=== PATIENT | male | born 1945 | race Caucasian/White ===

== ENCOUNTER 2019-04-14 08:23 | Outpatient (CLI) | payer MEDICARE, SELFPAY ==
[2019-04-14 08:37] LABS: Basophils Absolute Auto 0.05 K/mm3 (0.00-0.10); Eosinophils Absolute Auto 0.38 K/mm3 (0.02-0.50); Eosinophils Percent Auto 7.6 % (1.0-6.0); Hematocrit 34.1 % (37.0-46.0); Hemoglobin 11.5 g/dL (12.4-15.3); Immature Granulocyte Absolute 0.01 K/mm3 (0.00-0.00); Immature Granulocyte Percent A 0.2 % (0.0-0.0); Lymphocytes Absolute Auto 0.63 K/mm3 (1.10-4.50); Lymphocytes Percent Auto 12.6 % (18.0-42.0); Mean Corpuscular HGB Conc 33.7 g/dL (32.0-36.0); Mean Corpuscular Hemoglobin 32.4 pg (27.0-31.0); Mean Corpuscular Volume 96.1 fL (78.0-102.0); Mean Platelet Volume 9.3 fl (8.7-11.0); Monocytes Absolute Auto 0.63 K/mm3 (0.10-0.90); Monocytes Percent Auto 12.6 % (2.0-11.0); Neutrophils Absolute Auto 3.3 K/mm3 (1.7-7.2); Platelet Count Result 104 K/mm3 (150-420); Red Blood Count 3.55 M/mm3 (4.70-6.10); Red Cell Distribution Width 14.6 % (11.6-14.4)
[2019-04-14 10:22] LABS: Alanine Aminotransferase 31 U/L (16-63); Albumin Level 3.9 g/dL (3.4-5.0); Alkaline Phosphatase 57 U/L (46-116); Anion Gap 14.2 mmol/L (7-16); Aspartate Amino Transferase 25 U/L (15-37); Bilirubin,Total 0.9 mg/dL (0.00-1.00); Blood Urea Nitrogen 21 mg/dL (7-18); Calcium 8.6 mg/dL (8.5-10.1); Carbon Dioxide 26 mmol/L (21-32); Chloride 106 mmol/L (98-108); Estimated Glomerular Filt Rate > 60; Glucose 104 mg/dL (70-99); Osmolality Calculated 297 mOsm/kg (285-295); Potassium 4.2 mmol/L (3.5-5.1); Sodium 142 mmol/L (136-145); Total Protein 6.8 g/dL (6.4-8.2)
== END 2019-04-14 08:24 | disposition home or self-care (01) ==
LOC: CHSLAB 08:24
PROVIDERS: PCP Internal Medicine Geriatric Medicine; Visit Provider Internal Medicine Geriatric Medicine
DX: M06.9 Rheumatoid arthritis, unspecified (principal)
CPT/HCPCS: 36415; 80053; 85025

== ENCOUNTER 2019-05-12 07:57 | Outpatient (CLI) | payer MEDICARE, SELFPAY ==
--- NOTE | ~2019-05-12 | US_ITS ---
EXAMINATION: US retroperitoneal comp DATE: 05/12/2019 09:45 INDICATION: Malignant neoplasm of the urinary bladder TECHNIQUE: Multiple grayscale and Doppler ultrasound images of the kidneys were obtained. COMPARISON: CT, 12/23/2018 FINDINGS: The right kidney measures 10.9 x 5.9 x 5.2 cm. The left kidney measures 11.1 x 5.8 x 5.8 cm . Cysts of the left kidney measure up to 2.2 cm. The kidneys demonstrate normal parenchymal echogenic ity. There is mild bilateral hydronephrosis which resolves after voiding. The bladder is normal. IMPRESSION: 1. Mild bilateral hydronephrosis which resolves post voiding. Reviewed, dictated and finalized at location A.
== END 2019-05-12 07:58 | disposition home or self-care (01) ==
PROVIDERS: PCP Internal Medicine Geriatric Medicine; Visit Provider Urology
DX: C67.2 Malignant neoplasm of lateral wall of bladder (principal)
CPT/HCPCS: 76770

== ENCOUNTER 2019-05-26 12:29 | Outpatient (CLI) | payer MEDICARE, SELFPAY ==
--- NOTE | ~2019-05-26 | XR_ITS ---
XR chest 2V DATE: 05/26/2019 12:48 INDICATION: Cough, fever TECHNIQUE: 2 views COMPARISON: None FINDINGS: Normal heart size. There is aortic calcification and tortuosity. No hilar or mediastinal en largement.Approximately 4 x 9 mm density overlies right mid lung at level of minor fissure; different ial diagnosis includes fissure node versus less likely small pulmonary mass. The lungs are otherwise clear. No pulmonary infiltrate or consolidation, pulmonary vascular congestion or pleural effusion or pneumothorax. There is diffuse idiopathic skeletal hyperostosis and scoliosis of the thoracic spine. IMPRESSION: Probable fissural node, minor fissure; consider CT thorax at this time for further evalua tion, or follow up chest radiograph in 6 months to document expected stability. Otherwise no active cardiopulmonary disease Aortic atherosclerosis Reviewed, dictated and finalized at location B. IMPRESSION: Probable fissural node, minor fissure; consider CT thorax at this t guicho for further evaluation, or follow up chest radiograph in 6 months to docume nt expected stability. Otherwise no active cardiopulmonary disease Aortic atherosclerosis
[2019-05-26 12:43] LABS: Basophils Absolute Auto 0.02 K/mm3 (0.00-0.10); Basophils Percent Auto 0.3 % (0.0-1.0); Eosinophils Absolute Auto 0.23 K/mm3 (0.02-0.50); Eosinophils Percent Auto 3.9 % (1.0-6.0); Hematocrit 35.6 % (37.0-46.0); Immature Granulocyte Absolute 0.03 K/mm3 (0.00-0.00); Immature Granulocyte Percent A 0.5 % (0.0-0.0); Lymphocytes Absolute Auto 0.48 K/mm3 (1.10-4.50); Lymphocytes Percent Auto 8.2 % (18.0-42.0); Mean Corpuscular HGB Conc 33.7 g/dL (32.0-36.0); Mean Corpuscular Hemoglobin 32.8 pg (27.0-31.0); Mean Corpuscular Volume 97.3 fL (78.0-102.0); Mean Platelet Volume 9.6 fl (8.7-11.0); Monocytes Absolute Auto 0.66 K/mm3 (0.10-0.90); Monocytes Percent Auto 11.3 % (2.0-11.0); Neutrophils Absolute Auto 4.4 K/mm3 (1.7-7.2); Neutrophils Percent Auto 75.8 % (50.0-70.0); Platelet Count Result 111 K/mm3 (150-420); Red Blood Count 3.66 M/mm3 (4.70-6.10); Red Cell Distribution Width 14.7 % (11.6-14.4); White Blood Count 5.9 K/mm3 (4.8-10.8)
== END 2019-05-26 12:30 | disposition home or self-care (01) ==
LOC: CHSLAB 12:32
PROVIDERS: PCP Internal Medicine Geriatric Medicine; Visit Provider Internal Medicine Geriatric Medicine
DX: R05 Cough (principal)
CPT/HCPCS: 36415; 71046; 85025

== ENCOUNTER 2019-06-16 07:24 | Outpatient (CLI) | payer MEDICARE, SELFPAY ==
--- NOTE | ~2019-06-16 | CT_ITS ---
EXAMINATION: CT abdomen pelvis wo/w con DATE: 06/16/2019 08:38 INDICATION: Malignant neoplasm of the urinary bladder TECHNIQUE: Computed tomography (CT) of the abdomen and pelvis was performed without intravenous contr ast. CT of the abdomen and pelvis was then performed with a total of 130 mL Omnipaque 350 intravenous contrast using a double-bolus technique for simultaneous opacification of the renal parenchyma and r enal collecting system. The dose-length product (DLP) was 1337.16 mGy-cm. Automated exposure control and iterative reconstruction technique were employed. COMPARISON: 01/15/2019 FINDINGS: There are subpleural groundglass and reticular opacities in the visualized lung bases with an appearance of nonspecific interstitial pneumonia (NSIP). The heart size is normal. There is a smal l sliding hiatal hernia. The liver, spleen, gallbladder, and adrenal glands are normal. Punctate calc ifications of the pancreas are consistent with chronic pancreatitis. Cysts of the kidneys measure up to 2.7 cm on the left. 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 No suspicious renal or urothelial lesion is identifie d. There is no hydronephrosis or hydroureter. There is a 4.3 x 4.2 cm fusiform aneurysm of the infrar enal abdominal aorta. No pathologically enlarged abdominal or pelvic lymph nodes are identified. Ther e is no free intraperitoneal gas or evidence of bowel obstruction. There is severe lumbar spondylosis at L5-S1. 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 IMPRESSION: 1. No suspicious renal or urothelial lesion identified. 2. Stable fusiform abdominal aortic aneurysm. Reviewed, dictated and finalized at location A.
--- NOTE | ~2019-06-16 | XR_ITS ---
EXAMINATION: XR abdomen/kub 1V INDICATION: Malignant neoplasm of the urinary bladder TECHNIQUE: Supine views of the abdomen were obtained on 2 radiographs. COMPARISON: 09/03/2011 FINDINGS: A moderate volume of colonic stool is present. Surgical changes are noted in the pelvis. Th ere is severe lumbar spondylosis at L5-S1. The bowel gas pattern is normal. IMPRESSION: 1. No acute abnormality. Reviewed, dictated and finalized at location A. IMPRESSION: 1. No acute abnormality.
[2019-06-16 07:52] LABS: Estimated Glomerular Filt Rate 60
== END 2019-06-16 07:25 | disposition home or self-care (01) ==
LOC: CHSIMG 07:28
PROVIDERS: PCP Internal Medicine Geriatric Medicine; Visit Provider Urology
DX: C67.2 Malignant neoplasm of lateral wall of bladder (principal)
CPT/HCPCS: 74018; 74178; Q9965

== ENCOUNTER 2019-08-19 11:08 | Outpatient (CLI) | payer MEDICARE, SELFPAY ==
[2019-08-19 11:29] LABS: Hematocrit 33.5 % (37.0-46.0); Hemoglobin 11.5 g/dL (12.4-15.3); Mean Corpuscular HGB Conc 34.3 g/dL (32.0-36.0); Mean Corpuscular Hemoglobin 33.3 pg (27.0-31.0); Mean Corpuscular Volume 97.1 fL (78.0-102.0); Mean Platelet Volume 9.2 fl (8.7-11.0); Platelet Count Result 120 K/mm3 (150-420); Red Blood Count 3.45 M/mm3 (4.70-6.10); Red Cell Distribution Width 14.6 % (11.6-14.4); White Blood Count 3.8 K/mm3 (4.8-10.8)
[2019-08-19 11:52] LABS: Alanine Aminotransferase 27 U/L (16-63); Albumin Level 3.6 g/dL (3.4-5.0); Alkaline Phosphatase 65 U/L (46-116); Anion Gap 11.7 mmol/L (7-16); Aspartate Amino Transferase 24 U/L (15-37); Bilirubin,Total 0.6 mg/dL (0.00-1.00); Blood Urea Nitrogen 29 mg/dL (7-18); Calcium 8.4 mg/dL (8.5-10.1); Carbon Dioxide 27 mmol/L (21-32); Chloride 106 mmol/L (98-108); Estimated Glomerular Filt Rate > 60; Glucose 90 mg/dL (70-99); Osmolality Calculated 295 mOsm/kg (285-295); Potassium 4.7 mmol/L (3.5-5.1); Sodium 140 mmol/L (136-145); Total Protein 6.5 g/dL (6.4-8.2)
[2019-08-19 12:26] LABS: Band Neutrophils Percent 2 % (0-6); Basophils Absolute Manual 0.03 K/mm3 (0-0.1); Basophils Percent Manual 1 % (0-1); Eosinophils Absolute Manual 0.22 K/mm3 (0.02-0.5); Eosinophils Percent Manual 6 % (1-6); Lymphocytes Absolute Manual 0.91 K/mm3 (1.1-4.5); Lymphocytes Percent Manual 24 % (18-44); Monocytes Percent Manual 8 % (3-9); Neutrophils Absolute Manual 2.31 K/mm3 (1.3-6.7); Neutrophils Percent Manual 59 % (46-73); Platelet Estimate Adequate (Adequate); Total Cells Counted 100
== END 2019-08-19 11:09 | disposition home or self-care (01) ==
DX: M05.79 Rheumatoid arthritis with rheumatoid factor of multiple sites without organ or systems involvement (principal); I10 Essential (primary) hypertension; E78.2 Mixed hyperlipidemia
CPT/HCPCS: 36415; 80053; 85025

== ENCOUNTER 2020-01-15 08:14 | Outpatient (CLI) | payer MEDICARE, SELFPAY ==
[2020-01-15 08:42] LABS: Basophils Absolute Auto 0.03 K/mm3 (0.00-0.10); Basophils Percent Auto 0.7 % (0.0-1.0); Eosinophils Absolute Auto 0.34 K/mm3 (0.02-0.50); Eosinophils Percent Auto 7.9 % (1.0-6.0); Hematocrit 36.3 % (37.0-46.0); Hemoglobin 11.7 g/dL (12.4-15.3); Immature Granulocyte Absolute 0.02 K/mm3 (0.00-0.00); Immature Granulocyte Percent A 0.5 % (0.0-0.0); Lymphocytes Absolute Auto 0.59 K/mm3 (1.10-4.50); Lymphocytes Percent Auto 13.7 % (18.0-42.0); Mean Corpuscular HGB Conc 32.2 g/dL (32.0-36.0); Mean Corpuscular Volume 99.2 fL (78.0-102.0); Monocytes Percent Auto 13.9 % (2.0-11.0); Neutrophils Absolute Auto 2.7 K/mm3 (1.7-7.2); Neutrophils Percent Auto 63.3 % (50.0-70.0); Platelet Count Result 123 K/mm3 (150-420); Red Blood Count 3.66 M/mm3 (4.70-6.10); Red Cell Distribution Width 15.1 % (11.6-14.4); White Blood Count 4.3 K/mm3 (4.8-10.8)
[2020-01-15 09:55] LABS: Alanine Aminotransferase 30 U/L (16-63); Albumin Level 4.1 g/dL (3.4-5.0); Alkaline Phosphatase 63 U/L (46-116); Anion Gap 11 mmol/L (8-16); Aspartate Amino Transferase 22 U/L (15-37); Bilirubin,Total 0.8 mg/dL (0.00-1.00); Blood Urea Nitrogen 27 mg/dL (7-18); Calcium 8.8 mg/dL (8.5-10.1); Carbon Dioxide 25 mmol/L (21-32); Chloride 107 mmol/L (98-108); Estimated Glomerular Filt Rate > 60; Glucose 116 mg/dL (70-99); LDL Cholesterol Direct 95 mg/dL (0-130); Osmolality Calculated 302 mOsm/kg (285-295); Potassium 4.4 mmol/L (3.5-5.1); Sodium 143 mmol/L (136-145); Vitamin B12 615 pg/mL (193-986)
== END 2020-01-15 08:15 | disposition home or self-care (01) ==
LOC: CHSLAB 08:16
PROVIDERS: PCP Internal Medicine Geriatric Medicine; Visit Provider Internal Medicine Geriatric Medicine
DX: I71.4 Abdominal aortic aneurysm, without rupture (principal); E78.2 Mixed hyperlipidemia; M05.79 Rheumatoid arthritis with rheumatoid factor of multiple sites without organ or systems involvement; R26.89 Other abnormalities of gait and mobility
CPT/HCPCS: 36415; 80053; 82607; 83721; 85025

== ENCOUNTER 2020-01-29 11:53 | Outpatient (CLI) | payer MEDICARE, SELFPAY ==
[2020-01-29 12:07] LABS: Appearance Urine Sl Cloudy (Clear); Bilirubin Urine Negative (Negative); Color Urine Yellow (Yellow); Glucose Urine UA Negative (Negative); Ketones Urine Negative (Negative); Leukocyte Esterase Ur 1+ LEU/UL (Negative); Nitrate Urine Negative (Negative); Protein Urine Trace (Negative); Urobilinogen Urine 0.2 mg/dL (0.2-1.0)
[2020-01-29 12:13] LABS: Add Urine Microscopic? YES; Bacteria Urine Trace /hpf; Blood Urine Trace-Intact (Negative)
== END 2020-01-29 11:54 | disposition home or self-care (01) ==
LOC: CHSLAB 11:55
PROVIDERS: PCP Internal Medicine Geriatric Medicine; Visit Provider Internal Medicine Geriatric Medicine
DX: R35.0 Frequency of micturition (principal)
CPT/HCPCS: 81001; 87077; 87086; 87088

== ENCOUNTER 2020-03-15 08:21 | Outpatient (CLI) | payer MEDICARE, SELFPAY ==
[2020-03-15 08:41] LABS: Basophils Absolute Auto 0.04 K/mm3 (0.00-0.10); Basophils Percent Auto 0.9 % (0.0-1.0); Eosinophils Absolute Auto 0.27 K/mm3 (0.02-0.50); Eosinophils Percent Auto 5.9 % (1.0-6.0); Hematocrit 34.9 % (37.0-46.0); Hemoglobin 11.8 g/dL (12.4-15.3); Immature Granulocyte Absolute 0.02 K/mm3 (0.00-0.00); Immature Granulocyte Percent A 0.4 % (0.0-0.0); Lymphocytes Absolute Auto 0.69 K/mm3 (1.10-4.50); Lymphocytes Percent Auto 15.1 % (18.0-42.0); Mean Corpuscular HGB Conc 33.8 g/dL (32.0-36.0); Mean Corpuscular Hemoglobin 33.6 pg (27.0-31.0); Mean Corpuscular Volume 99.4 fL (78.0-102.0); Monocytes Absolute Auto 0.54 K/mm3 (0.10-0.90); Monocytes Percent Auto 11.8 % (2.0-11.0); Neutrophils Percent Auto 65.9 % (50.0-70.0); Platelet Count Result 110 K/mm3 (150-420); Red Blood Count 3.51 M/mm3 (4.70-6.10); Red Cell Distribution Width 14.8 % (11.6-14.4); White Blood Count 4.6 K/mm3 (4.8-10.8)
[2020-03-15 08:42] LABS: Add Urine Microscopic? YES; Appearance Urine Sl Cloudy (Clear); Bilirubin Urine Negative (Negative); Blood Urine 3+ (Negative); Color Urine Yellow (Yellow); Glucose Urine UA Negative (Negative); Ketones Urine Negative (Negative); Leukocyte Esterase Ur Negative (Negative); Nitrate Urine Negative (Negative); Protein Urine 2+ (Negative); Specific Grav Ur 1.025 (1.010-1.020); Urobilinogen Urine 0.2 mg/dL (0.2-1.0)
[2020-03-15 08:54] LABS: Bacteria Urine 1+ /hpf; Mucus Urine Few /lpf; RBC Urine >75 /hpf (0-2); Squamous Epithelial Cell Urine Rare /hpf (Few)
[2020-03-15 09:46] LABS: Alanine Aminotransferase 27 U/L (16-63); Albumin Level 4.1 g/dL (3.4-5.0); Alkaline Phosphatase 65 U/L (46-116); Anion Gap 6 mmol/L (8-16); Aspartate Amino Transferase 24 U/L (15-37); Blood Urea Nitrogen 23 mg/dL (7-18); Calcium 8.9 mg/dL (8.5-10.1); Carbon Dioxide 28 mmol/L (21-32); Chloride 105 mmol/L (98-108); Estimated Glomerular Filt Rate > 60; Glucose 110 mg/dL (70-99); Osmolality Calculated 292 mOsm/kg (285-295); Potassium 4.1 mmol/L (3.5-5.1); Sodium 139 mmol/L (136-145); Total Protein 7.1 g/dL (6.4-8.2)
[2020-03-15 09:56] LABS: Erythrocyte Sedimentation Rate 52 mm/hr (0-20)
== END 2020-03-15 08:22 | disposition home or self-care (01) ==
PROVIDERS: PCP Internal Medicine Geriatric Medicine; Visit Provider Internal Medicine Geriatric Medicine
DX: M05.79 Rheumatoid arthritis with rheumatoid factor of multiple sites without organ or systems involvement (principal); R35.0 Frequency of micturition
CPT/HCPCS: 36415; 80053; 81001; 85025; 85652; 87086

== ENCOUNTER 2020-06-01 07:50 | Outpatient (CLI) | payer MEDICARE, SELFPAY ==
--- NOTE | ~2020-06-01 | US_ITS ---
EXAMINATION: US aorta [facility] scr[facility] DATE: 06/01/2020 08:26 INDICATION: Abdominal aortic aneurysm TECHNIQUE: Grayscale, color Doppler, and pulsed Doppler images of the aorta and common iliac arteries were obtained. COMPARISON: 12/31/2017 FINDINGS: The proximal aorta measures 1.9 cm in maximal AP diameter. The mid aorta measures 2.0 cm. Approximate ly 5 cm long distal aortic aneurysm measuring up to 4.3 cm. The right common iliac artery measures 11 mm. The left common iliac artery measures 11 mm. IMPRESSION: 1. No significant interval change in a 4.3 cm fusiform infrarenal abdominal aortic aneurysm. Reviewed, dictated and finalized at location D. IMPRESSION: 1. No significant interval change in a 4.3 cm fusiform infrarenal abdominal aor tic aneurysm.
== END 2020-06-01 07:51 | disposition home or self-care (01) ==
LOC: CHSIMG 07:53
PROVIDERS: PCP Internal Medicine Geriatric Medicine; Visit Provider Internal Medicine Geriatric Medicine
DX: I71.4 Abdominal aortic aneurysm, without rupture (principal)
CPT/HCPCS: 76706

== ENCOUNTER 2020-06-10 08:46 | Outpatient (CLI) | payer MEDICARE, SELFPAY ==
[2020-06-10 09:58] LABS: Erythrocyte Sedimentation Rate 52 mm/hr (0-20)
== END 2020-06-10 08:47 | disposition home or self-care (01) ==
LOC: CHSLAB 08:48
PROVIDERS: PCP Internal Medicine Geriatric Medicine; Visit Provider Internal Medicine Geriatric Medicine
DX: M05.79 Rheumatoid arthritis with rheumatoid factor of multiple sites without organ or systems involvement (principal)
CPT/HCPCS: 36415; 85652

== ENCOUNTER 2020-08-19 09:02 | Outpatient (CLI) | payer MEDICARE, SELFPAY ==
--- NOTE | 2020-09-16 08:36 | WPDHOLTEREM ---
Holter/Event Monitor Holter/Event Monitor Date of procedure: 08/19/20 Holter/Event Procedure: Event Monitor Indications: Dizziness Conclusion: 1. 21 days event monitor between 08/19/20-09/13/20. There are 152 available transmissions for analysis. 2. Predominant rhythm is sinus rhythm. HR range 50-145 bpm; average 76 bpm. 3. There are occasional premature supraventricular complexes with total burden of 1%. There are 37 episodes of SVT/atrial tachycardia, fastest at 145 bpm and longest lasting 22 seconds. 4. There are intermittent premature ventricular complexes with total burden of 5%. No ventricular tachycardia. 5. First degree AV block. No significant pauses greater than 2 seconds. 6. Patient reports 5 symptoms of lightheadedness, shortness of breath and symptoms other than listed which demonstrate sinus rhythm, HR range 68-92 bpm and 1 PVC and 2 atrial couplets.
== END 2020-08-19 09:03 | disposition home or self-care (01) ==
LOC: CHSCARD 09:06
PROVIDERS: PCP Internal Medicine Geriatric Medicine
DX: R42 Dizziness and giddiness (principal)
CPT/HCPCS: 99199

== ENCOUNTER 2021-03-08 08:00 | Outpatient (RCR) | payer MEDICARE, SELFPAY ==
--- NOTE | 2021-03-08 09:03 | PTOPEVAL ---
Thank you for referring Kadeem Sinha to [facility].? The patient is scheduled to be seen for therapy? ____x/week for ___ weeks. Please review, sign, date and return this plan of care ZEYNEP. I agree with and certify that the following plan of care is medically necessary. Referring Physician Date Admitting Provider: Attending Provider: Cari Lawrence, Referring Provider: *PT Outpatient Evaluation Start: 03/08/21 07:59 Freq: Status: Active Protocol: Document 03/08/21 08:00 ACR (Rec: 03/08/21 09:02 ACR [id number]) Therapy Assessment Status Assessment Status Assessment Status Evaluation Evaluation Information Problem Diagnosis R shoulder pain Onset 02/15/21 Subjective Information Patient states that he is has Query Text:As Reported By Patient/ an 85 pound dog that plays tug Family of war alot and thinks that is what caused the pain. He states that he has difficulty with putting dishes away and any other activity with reaching overhead. He states that he went to the doctor and was put on prednisone and felt better. He states that he is packing to move and so is doing a lot of movements that he is not use to. He states he is not doing any heavy lifting. He states that washing dishes and scrubbing dishes increases the pain. He states that his sleep is disrupted quite a bit. He states that his goal for therapy is to improve strength and decrease pain. Prior Level of Function Activity Level (Last 3 Months) Occupation retired Hand Dominance Right Activity of Daily Living Ability Independent Indoor/Home Mobility Independent Community Mobility Independent Stairs Ability Independent Functional Cognition (Planning, Shopping Independent , Taking Medications) Cooking Yes Cleaning Yes Laundry Yes Shopping Yes Driving Yes Pain Assessment Timing of Pain Assessment Timing of Pain Assessment Assessment Pain Scale Pain Scale Used Numeric (1 - 10) Self Report Pain Assessment Right
--- NOTE | 2021-03-25 09:07 | PTOPEVAL ---
Thank you for referring Kadeem Sinha to [facility].? The patient is scheduled to be seen for therapy? ____x/week for ___ weeks. Please review, sign, date and return this plan of care ZEYNEP. I agree with and certify that the following plan of care is medically necessary. Referring Physician Date Admitting Provider: Attending Provider: Cari Lawrence, Referring Provider: *PT Outpatient Evaluation Start: 03/08/21 07:59 Freq: Status: Active Protocol: Document 03/25/21 08:19 ACR (Rec: 03/25/21 09:05 ACR [id number]) Therapy Assessment Status Assessment Status Assessment Status Discharge Evaluation Information Problem Diagnosis R shoulder pain Onset 02/15/21 Subjective Information Patient states that his arm Query Text:As Reported By Patient/ does not hurt as bad as when Family he first started therapy. He still has some pain with certain movements. He states that he still has pain when reaching overhead when putting dishes away and when reaching out to the side. He is still not doing a lot of heavy lifting, but when he keeps loads below the waist then the pain does not increase. Patient states that he is sleeping a little better. He does believe therapy has helped him Pain Assessment Pain Scale Pain Scale Used Numeric (1 - 10) Self Report Pain Assessment Right Shoulder(s) Reported Pain Level 0 Greatest Pain Intensity 3 Pain Score Pain Score 0: Self Report Interventions Used Interventions Used By Clinicians Activity or ADL's,Exercise Upper Extremity Range of Motion Scapular/ Shoulder Range of Motion Right Shoulder Flexion - Active 153 Shoulder Abduction - Active 175 Left Shoulder Flexion - Active 156 Shoulder Abduction - Active 180 Upper Extremity Muscle Strength Testing Scapular/Shoulder Right Shoulder Flexion Strength 4+ Good + Shoulder Adduction Strength 5 Normal Shoulder Medial Rotation Strength 5 Normal Shoulder Lateral Rotation Strength 4+ Good + Left Shoulder Flexion Strength 5 Normal Shoulder Abduction Strength 5 Normal Shoulder Medial Rotation Strength 5 Normal Shoulder Lateral Rotation Strength 5 Normal Palpation Assessment Palpation Palpation Patient continues to have TTP at the L bicpital groove with
== END 2021-03-25 10:29 | disposition home or self-care (01) ==
LOC: CHSPT 08:00
PROVIDERS: Visit Provider Internal Medicine Geriatric Medicine
DX: M25.511 Pain in right shoulder (principal)
CPT/HCPCS: 97014; 97110; 97140; 97161; G0283

== ENCOUNTER 2021-06-09 13:41 | Emergency (ER) | payer MEDICARE, SELFPAY ==
--- NOTE | ~2021-06-09 | XR_ITS ---
EXAMINATION: XR forearm RT 2V DATE: 06/09/2021 14:00 INDICATION: Right forearm injury and pain. TECHNIQUE: 2 views of right forearm were obtained. COMPARISON: None. FINDINGS: Bone alignment is normal. No fracture. 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 No elbow joint effusion. IMPRESSION: 1. No fracture. Reviewed, dictated and finalized at location A. IMPRESSION: 1. No fracture.
--- NOTE | 2021-06-09 13:58 | ED.UPPEXIN ---
HPI - Extremity Injury (Upper) General Chief Complaint: Extremity Injury, Upper Stated Complaint: rt arm pain,fall Time Seen by Provider: 06/09/21 13:55 Source: patient Mode of arrival: ambulatory Limitations: no limitations History of Present Illness HPI narrative: Mr. Sinha is a 75-year-old male patient presenting to the clinic today with complaints of right forearm pain after a fall on Sunday. He denies hitting his head or any loss of consciousness. Does have an area of bruising and tenderness to his right forearm that he would like to have evaluated today in the clinic. States he does not feel like anything is broken however he would like to get an x-ray to be sure. Related Data Home Medications Medication Instructions Recorded Confirmed carbidopa-levodopa tablet 06/09/21 donepezil mg 06/09/21 06/09/21 folic acid 06/09/21 leflunomide mg 06/09/21 lisinopril-hydrochlorothiazide tablet 06/09/21 methotrexate sodium 06/09/21 omeprazole 06/09/21 simvastatin mg 06/09/21 trazodone 06/09/21 Allergies Allergy/AdvReac Type Severity Reaction Status Date / Time No Known Allergies Allergy Verified 06/09/21 13:57 Review of Systems Review of Systems: Pertinent positives per HPI. Patient denies any fever, chills, rash, headache, visual changes, dizziness, cough, runny nose, sore throat, shortness of breath, chest pain, palpitations, nausea, vomiting, diarrhea, constipation, abdominal pain, or any urinary issues. PMFSH Comments At the time of my signature, I reviewed and agree with the nursing past medical, surgical, social, and family history. There is no relevant family history pertinent to the patient complaint. Exam Narrative: Pertinent positives per HPI. Patient denies any fever, chills, rash, headache, visual changes, dizziness, cough, runny nose, sore throat, shortness of breath, chest pain, palpitations, nausea, vomiting, diarrhea, constipation, abdominal pain, or any urinary issues. Course Course Emergency Course: Portions of this record may have been created with voice recognition software. Level of Care: Express Care Visit Vital Signs Vital signs: Vital signs reviewed MDM - Extremity Injury (Upper) MDM Narrative Medical decision making narrative: At the time of assessment patient is resting comfortably on the exam table. Has a tender area to the proximal lateral right forearm. X-ray was completed and it was negative for any fracture or malalignment. I suspect a soft tissue contusion. Discussed supportive measures and patient voiced understanding of discharge instructions. Imaging Data Attestation: I personally reviewed and interpreted this imaging study as follows: My impression: Negative for fracture or malalignment of the right forearm Radiologist's impression: [facility] [phone] XRay ReportSigned Patient: Kadeem Sinha ADOB: 1945MR#: [id number]/Sex: 75 / MAcct:[id number]: EXPTROY ADM Date: 06/09/21Attending Dr: Ordering Physician: Fantasma Pardo APRN Date of Service: 06/09/21 Procedure(s): XR forearm RT 2V Accession Number(s): [id number] cc: Fantasma Pardo APRN; Melinda, Cari COLE~ EXAMINATION: XR forearm RT 2V DATE: 06/09/2021 14:00 INDICATION: Right forearm injury and pain. TECHNIQUE: 2 views of right forearm were obtained. COMPARISON: None. FINDINGS: Bone alignment is normal. No fracture. 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 No elbow joint effusion. IMPRESSION: 1. No fracture. Reviewed, dictated and finalized at location A. Dictated By: Jamal Hall MD 06/09/21 140 Signed By: <Electronically signed by Jamal Hall MD in OV>06/09/21 140 Discharge Plan Discharge Clinical Impre
== END 2021-06-09 14:24 | disposition home or self-care (01) ==
PROVIDERS: Emergency Provider Nurse Practitioner Family; PCP Internal Medicine Geriatric Medicine
DX: S59.911A Unspecified injury of right forearm, initial encounter (principal); W19.XXXA Unspecified fall, initial encounter; G20 Parkinson's disease; I25.10 Atherosclerotic heart disease of native coronary artery without angina pectoris; E78.00 Pure hypercholesterolemia, unspecified; I10 Essential (primary) hypertension; K21.9 Gastro-esophageal reflux disease without esophagitis; N40.0 Benign prostatic hyperplasia without lower urinary tract symptoms
CPT/HCPCS: 73090; 99213; G0463

== ENCOUNTER 2021-11-18 12:21 | Outpatient (CLI) | payer MEDICARE, SELFPAY ==
--- NOTE | 2021-11-18 | ECHO_ITS ---
Patient Info Name: Kadeem Sinha Age: 76 years : 1945 Gender: Male Ht: 69 in Wt: 170 lbs BSA: 1.95 m2 HR: 66 bpm BP: 158 / 95 mmHg Technical Quality: Fair Exam Date: 11/18/2021 1:06 PM Exam Location: [facility] Patient Status: Outpatient Admit Date: 11/18/2021 Staff Ordering Physician: Melinda, Cari COLE Engine Buildup Mechanic: Margarette Amato RDCS Attending Provider: Kit, Cari COLE Exam Type: CA echo doppler color flow Study Info Indications - SOB RHEUMATOID ARTHRITIS Complete two-dimensional, color flow and Doppler transthoracic echocardiogram is performed. Summary 1. Complete two-dimensional, color flow and Doppler transthoracic echocardiogram is performed. 2. Left ventricular chamber dimension is normal. 3. Left ventricular systolic function is normal, estimated at 60-65%. 4. There is mildly increased left ventricular wall thickness. 5. The left ventricular diastolic function is grade I diastolic dysfunction. 6. E/e' 14 is mildly elevated. 7. Left atrial chamber dimension is mildly enlarged. 8. There is mild aortic valve sclerosis. 9. There is mild mitral valve regurgitation. 10. There is trace tricuspid valve regurgitation. 11. No pulmonary hypertension, estimated pulmonary arterial systolic pressure is 23 mmHg. Left Ventricle E/e' 14 is mildly elevated. Left ventricular chamber dimension is normal. Left ventricular systolic function is normal, estimated at 60-65%. There is mildly increased left ventricular wall thickness. The left ventricular diastolic function is grade I diastolic dysfunction. Right Ventricle Right ventricular chamber dimension is normal. Right ventricular systolic function is normal. Left Atria Left atrial chamber dimension is mildly enlarged. Right Atria Right atrial chamber dimension is normal. Aortic Valve The aortic valve is trileaflet. There is mild aortic valve sclerosis. There is no aortic valve stenosis. There is no aortic valve regurgitation. Pulmonic Valve There is no pulmonic regurgitation. Mitral Valve There is no mitral valve stenosis. There is mild mitral valve regurgitation. Tricuspid Valve There is trace tricuspid valve regurgitation. No pulmonary hypertension, estimated pulmonary arterial systolic pressure is 23 mmHg. Pericardium/Pleural There is no pericardial effusion. Inferior Vena Cava Normal inferior vena cava with >50% collapse upon inspiration consistent with normal right atrial pressure, 5 mmHg. Aorta The aortic root size at the sinus of Valsalva is normal. Left Ventricular Outflow Tract Name Value Normal LVOT 2D LVOT Diameter 2.1 cm LVOT Doppler LVOT Peak Gradient 4 mmHg LVOT Mean Gradient 2 mmHg LVOT VTI 21 cm LVOT VTI/AV VTI Ratio 1.0 LVOT Stroke Volume 72 ml LVOT CO 15.0 l/min LVOT CI 7.7 l/min/m2 Pulmonic Valve
--- NOTE | 2021-11-18 16:15 | WPDPFTINT ---
PFT Procedure Performed PFT Procedure Performed Spirometry with Pre/Post Bronchodilator Plethysmography (Lung Vol) Diffusing Cap (DLCO) Flow Vol Loop PFT Interpretation This is a pulmonary function test with pre and post-bronchodilator spirometry, plethysmography and diffusing capacity. The test was performed and results interpreted in accordance with the 2019 and 2005 ATS/ERS Task Force guidelines respectively using the Global Lung Function Initiative-2012 reference equations. Patient demonstrated good effort and cooperation. Reproducibility criteria were met. The quality of the pre bronchodilator spirometry maneuver was Grade A and post bronchodilator spirometry maneuver was Grade A. Findings: Spirometry: The contour the inspiratory and expiratory flow tracing are normal. The pre bronchodilator F VC is 3.69 L, 95% predicted. The pre bronchodilator FEV1 is 2.69 L, 93% predicted. The pre bronchodilator FEV1: FVC ratio 73%. The post bronchodilator FVC is 3.65 L, representing a 1% decrease. The post bronchodilator FEV1 is 2.67 L, representing 1% decrease. The post bronchodilator FEV1: FVC ratio 73%. Plethysmography: The total lung capacity is 5.90 L, 86% predicted. The functional residual capacity is 2.98 L, 81% predicted. The residual volume is 2.21 L, 88% predicted. Diffusing capacity: The diffusing capacity unadjusted for hemoglobin and carboxyhemoglobin is 14.8, 61% predicted. The diffusion capacity adjusted for alveolar volume is 2.88, 76% predicted. Impression: The spirometry is normal without evidence of an obstructive abnormality. There is no significant improvement after inhaling a single dose of albuterol. The diffusing capacity unadjusted for hemoglobin and carboxyhemoglobin is mildly decreased and normalizes when adjusted for alveolar volume. There are no prior studies for comparison
== END 2021-11-18 12:22 | disposition home or self-care (01) ==
LOC: ANHCARD 12:22
PROVIDERS: PCP Internal Medicine Geriatric Medicine; Visit Provider Internal Medicine Geriatric Medicine
DX: R06.02 Shortness of breath (principal); M05.79 Rheumatoid arthritis with rheumatoid factor of multiple sites without organ or systems involvement; I08.3 Combined rheumatic disorders of mitral, aortic and tricuspid valves
CPT/HCPCS: 93306; 94060; 94726; 94729

== ENCOUNTER 2023-02-16 08:37 | Outpatient (CLI) | payer MEDICARE, SELFPAY ==
--- NOTE | ~2023-02-16 | CT_ITS ---
CT of the Abdomen and Pelvis: Indication: Urinary bladder neoplasm Technique: 2.5 mm axial scans were obtained through the abdomen and pelvis prior to and following in travenous administration of 130 cc of Omnipaque 350. Dose reduction technique was used on this scan b y utilizing automated exposure control and iterative reconstruction technique. The dose-length produc t (DLP) was 1204.17 mGy-cm. COMPARISON: 06/16/2019 Findings: Scans through the lung bases demonstrate mild bibasilar peripheral chronic interstitial ch peng, similar to prior exam. The liver, spleen, pancreas, gallbladder, adrenals and kidneys are within normal limits. There are at herosclerotic calcifications of the aorta. There is a 5 cm infrarenal abdominal aortic aneurysm. No l ymphadenopathy. No bowel obstruction or bowel wall thickening. There is no evidence to suggest acute appendicitis. Images through the pelvis were performed. Mild wall thickening of the urinary bladder, prickly superi nora, stable from prior exam. Stable ileal conduit/into the superior right side of the urinary bladde r. No pelvic mass seen otherwise. Small fat-containing right inguinal hernia seen. No ascites. Impression: No evidence for active menisci metastatic disease. Stable minimal probable chronic wall thickening of the superior bladder with ileal conduit attached the superior right side of the urinary bladder. 5 cm infrarenal abdominal aortic aneurysm, increased in size from prior exam (previously 4.4 cm). Reviewed, dictated and finalized at location . 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 Stable minimal probable barrel cooper tunde wall thickening of the superior bladder with ileal conduit attached the sup erior right side of the urinary bladder. 5 cm infrarenal abdominal aortic aneurysm, increased in size from prior exam (p reviously 4.4 cm).
[2023-02-16 09:04] LABS: Estimated Glomerular Filt Rate 37
== END 2023-02-16 08:38 | disposition home or self-care (01) ==
PROVIDERS: PCP Internal Medicine Geriatric Medicine; Visit Provider Urology
DX: C67.2 Malignant neoplasm of lateral wall of bladder (principal); I71.40 Abdominal aortic aneurysm, without rupture, unspecified
CPT/HCPCS: 74178; Q9967

== ENCOUNTER 2024-10-29 11:42 | Outpatient (CLI) | payer MEDICARE, SELFPAY ==
--- OUTSIDE RECORDS SUMMARY | 2024-10-28 10:30 | XMS_ITS | Encounter Summary ---
Author Organization [facility] Address [address] [place] [address] Care Team Providers Care Instrument Lens Grinder Apprentice Name Role Phone Cari Lawrence MD Primary Care Provider [phone] Iván Jim MD Unavailable [phone] Celi Graves MD Unavailable Juan Mars MD Unavailable [phone] Mauricio Degroot MD Unavailable Curtis Ca MD Unavailable [phone] Chava Jones MD Unavailable [phone] Wili Hernandez MD Unavailable [phone] Jory Diego NP Unavailable [phone] Mitch Juan MD Unavailable [phone] Tiburcio Sarabia MD Unavailable Michelle Shi OD Unavailable [phone] Tomas Dunham MD Unavailable Reason for Referral * Procedure (Routine) - Pending Review Specialty Diagnoses / Procedures Referred By Contac t Referred To Contact Diagnoses COPD with asthma (HCC) Pulmonary fibrosis Procedures AMBULATORY OXIMETRY Elizabeth Hussein NP [address] [place] [address] Phone: tel: fax: [facility] Referral ID Status Reason Start Date Expiration Date V isits Requested Visits Authorized [id number] Pending Review 10/28/2024 11/27/2025 1 1 * MRI/CAT/PET Scan (Routine) - Authorized Specialty Diagnoses / Procedures Referred By Contac t Referred To Contact Radiology Diagnoses Encounter for screening for lung cancer Procedures CT Chest WO Contrast Elizabeth Hussein NP [address] [place] [address] Phone: tel: fax: [facility] [address] [place] [address] Referral ID Status Reason Start Date Expiration Date V isits Requested Visits Authorized [id number] Authorized 10/28/2024 11/27/2025 1 1 * Procedure (Routine) - Closed Specialty Diagnoses / Procedures Referred By Contac t Referred To Contact Diagnoses COPD with asthma (HCC) Pulmonary fibrosis Procedures Pulmonary Function Test -[facility]; Complete PFT with 6 Minute Walk Elizabeth Hussein NP [address] [place] [address] Phone: tel: fax: Referral ID Status Reason Start Date Expiration Date Visits Re quested Visits Authorized [id number] Closed 10/28/2024 11/27/2025 1 1 Reason for Visit * Reason Comments Shortness of Breath r Encounter Details Date Type Department Care Team (Late st Contact Info) Description 10/28/2024 10:30 AM CDT Office Visit [facility] [address] [facility] [address] [place] [address] Elizabeth Hussein NP [address] [place] [address] COPD with asthma (HCC) (Primary Dx); Pulmonary fibrosis; Encounter for screening for lung cancer Social History Tobacco Use Types Packs/Day Years Used Date Smoking Tobacco: Former Smokeless Tobacco: Never Alcohol Use Standard Drinks/Week Comments Yes 21 (1 standard drink = 0.6 oz pu re alcohol) [facility] Utilities Answer Date Recorded In the past 12 months has e [employer], gas, oil, or water company threatened to shut off services in your home? No 08/10/2023 Social Connection and Isolation Panel Answer Date Recorded In a typical week, how many times do you talk on the phone with family, friends, or neighbors? More than three times a week 08/10/2023 How often do you get togethe r with friends or relatives? Once a week 08/10/2023 How often do you attend chur ch or jainism services? Never 08/10/2023 Do you belong to any clubs o r organizations such as baptism groups, unions, fraternal or athletic groups, or school groups? No 08/10/2023 How often do you attend meet ings of the clubs or organizations you belong to? Never 08/10/2023 Are you , , di vorced, , never , or living with a partner? 08/10/2023 Overall Financial Resource Strain (CARDIA) Answe r Date Recorded How hard is it for you to pa y for the very basics like food, housing, medical care, and heating? Not hard at all 08/10/2023 PHQ-2 Answer Date Recorded PHQ-2 Total Score (If total score is 3 or more points, staff should administer the PHQ-9) 2 10/28/2024 Hunger Vital Sign Answer Date Recorded Within the past 12 months, y ou worried that your food would run out before you got the money to buy more. Never true 08/10/19 24 Within the past 12 months, t he food you bought just didn't last and you didn't have money to get more. Never true 08/10/2023 PRAPARE - Transportation Answer Date Re corded In the past 12 months, has l ack of transportation kept you from medical appointments or from getting medications? No 07/27 In the past 12 months, has l ack of transportation kept you from meetings, work, or from getting things needed for daily living? No 08/10/2023 Housing Stability Vital Sign Answer Black e Recorded In the last 12 months, was t here a time when you were not able to pay the mortgage or rent on time? No 12/19/2022 In the last 12 months, how many places have you lived? 1 12/19/2022 In the last 12 months, was t here a time when you did not have a steady place to sleep or slept in a half-way (including now)? No 12/19/2022 PHQ-9 Answer Date Recorded PHQ-9 Total Score 9 05/28/2023 Housing Stability Vital Sign Answer Black e Recorded In the last 12 months, was t here a time when you were not able to pay the mortgage or rent on time? No 08/10/2023 In the past 12 months, how m any times have you moved where you were living? 0 08/10/2023 At any time in the past 12 m [facility], were you homeless or living in a half-way (including now)? No 08/10/2023 Personal Safety Answer Date Recorded Have you ever been in or are you currently in a harmful physical or emotional relationship or is someone making you feel afraid or unsafe? Denies 12/18/2022 Education Answer Date Recorded What is the highest level of school you have completed or the highest degree you have received? 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 Gender Identity Male 03/09/2022 10:24 AM DENTAL CERAMIST HELPER Sexual Orientation Not on file Occupation Industry Job Start Date Job End Date retired Not on file Not on file Not on file documented as of this encounter Last Filed Vital Signs Vital Sign Reading Time Taken Comments Blood Pressure 126/62 10/28/2024 10:21 AM CDT Pulse 65 10/28/2024 10:21 AM CDT Temperature 36.6 C (97.8 F) 10/28/2024 10:21 AM CDT Respiratory Rate 24 10/28/2024 10:21 AM CDT Oxygen Saturation 97% 10/28/2024 10:21 AM CDT Inhaled Oxygen Concentration - - Weight 84.4 kg (186 lb) 10/28/2024 10:21 AM CDT Height 170.2 cm (5' 7) 10/28/2024 10:21 AM CDT Body Mass Index 29.13 10/28/2024 10:21 AM CDT documented in this encounter Patient Instructions * Patient Instructions* Elizabeth Hussein NP - 10/28/2024 10:30 AM CDT Needs PFTs and 6 minute walk test at [facility]. Needs low dose chest CT for lung cancer screening and pulmonary fibrosis. documented in this encounter Ordered Prescriptions Prescription Sig Dispense Quantity Refills Last Filled Start Date End Date albuterol HFA (PROVENTIL HFA,VENTOLIN HFA,PROAIR HFA) 90 mcg/actuation inhaler Inhale 2 puffs every 6 (six) hours as needed for wheezing 2 each 4 10/28/2024 documented in this encounter Plan of Treatment Pending Results Name Type Priority Associated Diagnoses Date /Time Pulmonary Function Test - PFT Routine COPD with asthma (HCC) Pulmonary fibrosis 10/29/2024 10:16 AM CDT Scheduled Orders Name Type Priority Associated Diagnoses Orde r Schedule CT Chest WO Contrast Imaging Schedule Routine, Read Routine (OP Routine) Encounter for screening for lung cancer Expected: 10/28/2024, Expires: 10/28/2025 documented as of this encounter Procedures Procedure Name Priority Date/Time Associated Diagnosis Comments AMBULATORY OXIMETRY Routine 10/28/2024 1 1:26 AM CDT COPD with asthma (HCC) Pulmonary fibrosis documented in this encounter Results * AMBULATORY OXIMETRY (10/28/2024 11:26 AM CDT) Narrative Renee Gamboa MA - 10/28/2024 11:26 AM CDT Resting on room air SPO2 97% with Heart rate of 65. Walking on room air SPO2 82% after about 200ft with Heart rate of 73. After 1 minute of sitting on room air SPO2 99% with Heart rate of 68. Walking on 2L of oxygen after 150ft SPO2 78% with Heart rate of 77. Walking on 4L of oxygen after 100ft SPO2 70% with Heart rate of 77. Resting rebounded to 100% after 1 minute on 4L of oxygen. [address] TRAFFIC CONTROL TECHNICIAN us Elizabeth Hussein PROPELLER MECHANIC IN CLINIC/BEDSIDE ORDERABLES Fin al Result documented in this encounter Visit Diagnoses Diagnosis COPD with asthma (HCC)- Primary Pulmonary fibrosis Postinflammatory pulmonary fibrosis Encounter for screening for lung cancer documented in this encounter Care Teams Instrument Lens Grinder Apprentice Relationship Specialty Start Date End Date Cari Lawrence MD PCP - General 05/26/16 Iván Jim MD [address] [place] [address] Referring Physician Orthopedic Surgery 09/06/22 Celi Graves MD [address] [place] [address] [place] [address] Consulting Physician Gastroenterology 12/25/22 Juan Mars MD [address] [place] [address] [place] [address] Consulting Physician Urology 01/30/23 Mauricio Degroot MD [address] [place] [address] [place] [address] Consulting Physician Nephrology 05/28/23 Curtis Ca MD [address] [place] [address] [place] [address] Consulting Physician Neurology 05/28/23 Chava Jones MD [address] [place] [address] [place] [address] Consulting Physician Plastic Surgery 05/28/23 Wili Hernandez MD [address] [facility] [address] [place] [address] Consulting Physician Cardiovascular Disease 05/27/22 Jory Diego NP [address] [facility] [address] [place] [address] Nurse Practitioner Family Medicine 07/30/23 Mitch Juan MD [address] [facility] [address] DUSTIN Gregorio [facility] [address] [place] [address] Surgeon Orthopedic Surgery 09/27/23 Tiburcio Sarabia MD [address] [facility] [address] DUSTIN Gregorio [facility] [address] [place] [address] Dermatology 09/27/23 Michelle Shi OD [address] [place] [address] [place] [address] Optometry 06/09/24 Tomas Dunham MD [address] [place] [address] Consulting Physician Vascular Surgery 09/08/24 documented as of this encounter
--- NOTE | ~2024-10-29 | XR_ITS ---
EXAM/ PROCEDURE: XR shoulder RT min 2V - 10/29/2024 11:52 CDT HISTORY: 79 years old Male with M12.811 - Other specific arthropathies, not elsewhere cla... COMPARISON: None available TECHNIQUE: Three view(s) FINDINGS/ IMPRESSION: There are no fractures or dislocations.Joint space narrowing, subchondral sclerosis, subchondral cyst formation and osteophyte formation, compatible with moderate osteoarthritis. Reviewed, dictated and finalized at location N.
--- OUTSIDE RECORDS SUMMARY | 2024-10-29 09:41 | XMS_ITS | Encounter Summary ---
Author Organization [facility] Address [address] [place] [address] Care Team Providers Care Roaster Supervisor Name Role Phone Cari Lawrence MD Primary Care Provider Iván Jim MD Unavailable [phone] Celi Graves MD Unavailable Juan Mars MD Unavailable [phone] Mauricio Degroot MD Unavailable Curtis Ca MD Unavailable [phone] Chava Jones MD Unavailable [phone] Wili Hernandez MD Unavailable [phone] Jory Diego NP Unavailable [phone] Mitch Juan MD Unavailable [phone] Tiburcio Sarabia MD Unavailable Michelle Shi OD Unavailable [phone] Tomas Dunham MD Unavailable Reason for Referral * Procedure (Routine) - Closed Specialty Diagnoses / Procedures Referred By Contac t Referred To Contact Diagnoses COPD with asthma (HCC) Pulmonary fibrosis Procedures Pulmonary Function Test -[facility]; Complete PFT with 6 Minute Walk Elizabeth Hussein NP [address] [place] [address] Phone: tel: fax: Referral ID Status Reason Start Date Expiration Date Visits Re quested Visits Authorized [id number] Closed 10/28/2024 11/27/2025 1 1 Reason for Visit * Procedure (Routine) - Closed Specialty Diagnoses / Procedures Referred By Contac t Referred To Contact Diagnoses COPD with asthma (HCC) Pulmonary fibrosis Procedures Pulmonary Function Test -[facility]; Complete PFT with 6 Minute Walk Elizabeth Hussein NP [address] [place] [address] Phone: tel: fax: Referral ID Status Reason Start Date Expiration Date Visits Re quested Visits Authorized [id number] Closed 10/28/2024 11/27/2025 1 1 Encounter Details Date Type Department Care Team (Latest Contact Info) Description 10/29/2024 9:41 AM CDT Hospital Encounter [facility] [address] [place] [address] COPD with asthma (HCC); Pulmonary fibrosis Social History Tobacco Use Types Packs/Day Years Used Date Smoking Tobacco: Former Smokeless Tobacco: Never Alcohol Use Standard Drinks/Week Comments Yes 21 (1 standard drink = 0.6 oz pu re alcohol) [facility] Utilities Answer Date Recorded In the past 12 months has [employer], gas, oil, or water [employer] threatened to shut off services in your [...] often do you attend chur ch or hinduism services? Never 08/10/2023 Do you belong to any clubs o r organizations such as alevism groups, unions, fraternal or athletic groups, or [...] money to buy more. Never true 08/10/19 Within the past 12 months, t he [...] place to sleep or slept in a chcf (including now)? No 12/19/2022 PHQ-9 Answer Date [...] any time in the past 12 m [facility], were you homeless or living in a chcf (including now)? No 08/10/2023 Personal Safety Answer [...] on file Legal Sex Male 3:43 PM TODDLER NANNY Gender Identity Male 03/09/2022 10:24 AM TODDLER NANNY Sexual Orientation Not on file Occupation Industry Job Start Date Job End Date retired Not on file Not on file Not on file documented as of this encounter Progress Notes * Nichelle Alfaro RRT - 10/29/2024 10:15 AM CDT 10/29/24 1000 Prior to Walk (measure after 5 minutes) Resting SPO2 97 % Resting HR 59 bpm BP Prior to Walk 122/59 Modified Hollie Scale 0- Nothing at All 6MWT O2 Flow Rate 0 6MWT Oxygen Device 0 Pt. Symptoms None Assistive Devices Walker During Walk Lowest SPO2 96 % Number of Rests During Walk 0 Duration of Rests During Walk 0 6 Minutes SPO2 97 % HR 66 bpm Distance Walked (feet) 980 feet Distance Walked (meters) 298 Modified Hollie Scale 3- Moderate Reason for Cessation end of test BP Post Walk 132/60 Pt. Symptoms Shortness of Breath After 5 Minutes of Rest HR 62 bpm BP 128/61 SPO2 98 % Pt. Symptoms None No oxygen required for testing. documented in this encounter Plan of Treatment Pending Results Name Type Priority Associated Diagnoses Date /Time Pulmonary Function Test - PFT Routine COPD with asthma (HCC) Pulmonary fibrosis 10/29/2024 10:16 AM CDT documented as of this encounter Procedures Procedure Name Priority Date/Time Associated Diagnosis Comments PULMONARY FUNCTION TEST (PFT) Routine 10/29/2024 10:16 AM CDT COPD with asthma (HCC) Pulmonary fibrosis documented in this encounter Visit Diagnoses Diagnosis COPD with asthma (HCC) Pulmonary fibrosis Postinflammatory pulmonary fibrosis documented in this encounter Care Teams Roaster Supervisor Relationship Specialty Start Date End Date Cari Lwarence MD PCP - General 05/26/16 Iván Jim MD [address] [place] [address] Referring Physician Orthopedic Surgery 09/06/22 Celi Graves MD [address] [place] [address] [place] [address] Consulting Physician Gastroenterology 12/25/22 Juan Mars MD [address] [place] [address] [place] [address] Consulting Physician Urology 01/30/23 Mauricio Degroot MD [address] [place] [address] [place] [address] Consulting Physician Nephrology 05/28/23 Curtis Ca MD [address] [place] [address] [place] [address] Consulting Physician Neurology 05/28/23 Chava Jones MD [address] [place] [address] [place] [address] Consulting Physician Plastic Surgery 05/28/23 Wili Hernandez MD [address] [place] [address] [place] [address] Consulting Physician Cardiovascular Disease 05/27/22 Jory Diego NP [address] [place] [address] [place] [address] Nurse Practitioner Family Medicine 07/30/23 Mitch Juan MD [address] [facility] [address] Gregorio [address] [place] [address] Surgeon Orthopedic Surgery 09/27/23 Tiburcio Sarabia MD [address] [place] [address] [address] [place] [address] Dermatology 09/27/23 Michelle Shi, AUREA [address] [place] [address] [place] [address] Optometry 06/09/24 Tomas Dunham MD [address] [place] [address] Consulting Physician Vascular Surgery 09/08/24 documented as of this encounter
--- OUTSIDE RECORDS SUMMARY | 2024-10-29 13:22 | XMS_ITS | Encounter Summary ---
Author Organization [facility] Address [address] [place] [address] Care Team Providers Care Supervisor Garment Manufacturing Name Role Phone Cari Lawrence MD Primary Care Provider [phone] Iván Jim MD Unavailable [phone] Celi Graves MD Unavailable Juan Mars MD Unavailable [phone] Mauricio Degroot MD Unavailable [phone] Curtis Ca MD Unavailable [phone] Chvaa Jones MD Unavailable [phone] Wili Hernandez MD Unavailable [phone] Jory Diego NP Unavailable [phone] Mitch Juan MD Unavailable [phone] Tiburcio Sarabia MD Unavailable Michelle Shi OD Unavailable [phone] Tomas Dunham MD Unavailable Encounter Details Date Type Department Care Team (Late st Contact Info) Description 10/16/2024 Results Follow-Up [facility] [address] [place] [address] [address] [id number] Gerson Villalpando MD [address] [facility] [address] [place] [address] PSG Social History Tobacco Use Types Packs/Day Years Used Date Smoking Tobacco: Former Smokeless Tobacco: Never Alcohol Use Standard Drinks/Week Comments Yes 21 (1 standard drink = 0.6 oz pu re alcohol) [facility] Utilities Answer Date Recorded In the past 12 months has e [employer], [employer], oil, or water [employer] threatened to shut off services in your [...] often do you attend chur ch or bahai services? Never 08/10/2023 Do you belong to any clubs o r organizations such as mormon groups, unions, fraternal or athletic groups, or [...] points, staff should administer the PHQ-9) 2 06/02/2024 Hunger Vital Sign Answer Date Recorded Within [...] place to sleep or slept in a assisted (including now)? No 12/19/2022 PHQ-9 Answer Date [...] any time in the past [address] [facility], were you homeless or living in a assisted (including now)? 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 Gender Identity Male 03/09/2022 10:24 AM GENERAL FORECASTER Sexual Orientation Not on file Occupation Industry Job Start Date Job End Date retired Not on file Not on file Not on file documented as of this encounter Miscellaneous Notes * Result Encounter Note - Paola Burger MA - 10/16/2024 1:21 PM CDT Pt informed order faxed to [employer] documented in this encounter Plan of Treatment Not on file documented as of this encounter Visit Diagnoses Not on filedocumented in this encounter Care Teams Supervisor Garment Manufacturing Relationship Specialty Start Date End Date Cari Lawrence MD PCP - General 05/26/16 Iván Jim MD [address] [place] [address] Referring Physician Orthopedic Surgery 09/06/22 Celi Graves MD [address] [place] [address] [place] [address] Consulting Physician Gastroenterology 12/25/22 Juan Mars MD [address] [place] [address] [place] [address] Consulting Physician Urology 01/30/23 Mauricio Degroot MD [address] [place] [address] [place] [address] Consulting Physician Nephrology 05/28/23 Curtis Ca MD [address] [place] [address] [address] [place] [address] Consulting Physician Neurology 05/28/23 Chava Jones MD [address] [place] [address] [place] [address] Consulting Physician Plastic Surgery 05/28/23 Wili Hernandez MD [address] [place] [address] [place] [address] Consulting Physician Cardiovascular Disease 05/27/22 Jory Diego, RY [address] [place] [address] [place] [address] Nurse Practitioner Family Medicine 07/30/23 Mitch Juan MD [address] [place] [address] [address] Gregorio [address] [place] [address] Surgeon Orthopedic Surgery 09/27/23 Tiburcio Sarabia MD [address] [place] [address] DR DUSTIN Gregorio [facility] [address] [place] [address] Dermatology 09/27/23 Michelle Shi OD [address] [place] [address] [place] [address] Optometry 06/09/24 Tomas Dunham MD [address] [place] [address] Consulting Physician Vascular Surgery 09/08/24 documented as of this encounter
--- OUTSIDE RECORDS SUMMARY | 2024-10-29 13:23 | XMS_ITS | Clinical Summary ---
Author Organization [facility] [address] [place] [address] Phone Care Team Providers Care Value Stream Manager Name Role Phone Cari Lawrence MD Primary Care Provider [phone] Iván Jim MD Unavailable Celi Graves MD Unavailable Juan Mars MD Unavailable [phone] Otoniel Jenkins MD Unavailable Curtis Ca MD Unavailable Chava Jones MD Unavailable [phone] Wili Hernandez MD Unavailable [phone] Jory Diego NP Unavailable Mitch Juan MD Unavailable Tiburcio Sarabia MD Unavailable Michelle Shi OD Unavailable [phone] Tomas Dunham MD Unavailable [phone] Allergies Active Allergy Reactions Criticality Noted Date Comments Naproxen Hives Medium Simvastatin Muscle pain Medium 05/28/2023 Switching to Crestor 20 Medications cyanocobalamin (Vitamin B-12) 1,000 mcg tabletIndication s:Prevention of Vitamin B12 Deficiency Take 1 tablet (1,000 mcg total) by mouth daily Active cholecalciferol, vitamin D3, (D3-2000 ORAL) Take 1,000 Units by mouth daily Active vit C,R-Tl-dwolo-lut ein-zeaxan 250-90-40-1 mg capsule Take 1 capsule by mouth 2 (two) times a day Recommended by field recruiter 024 Active melatonin 5 mg tablet Take 1 tablet (5 mg total) by mouth nightly Active mupirocin 2 % ointment kit Apply topically nightly Nightly as needed for nose bleeds Active traMADoL (ULTRAM) 50 mg tabletIndication s:Rheumatoid arthritis involving multiple sites with positive rheumatoid factor (HCC) Take 1 tablet (50 mg total) by mouth nightly as needed for pain Take with Tylenol 500 mg immediate release plus Tylenol ER 650 mg at each dose 30 tablet 025 Active carbidopa-levodo pa (SINEMET) 25-100 mg per tabletIndication s:Parkinson's disease (tremor, stiffness, slow motion, unstable posture) Take 1-2 tablets by mouth 3 (three) times a day Adjusted as directed: 2 tablets at 4:00 a.m., 1 tablet at 9:00 a.m., 2 tablets at 4:00 p.m. 450 tablet 5 025 Active carbidopa-levodo pa CR (SINEMET CR) 50-200 mg per CR tabletIndication s:Parkinson's disease (tremor, stiffness, slow motion, unstable posture) Take 1 tablet by mouth nightly 90 tablet 2 025 Active donepeziL (ARICEPT) 10 mg tabletIndication s:Lewy body dementia without behavioral disturbance (HCC) Take 1 tablet (10 mg total) by mouth nightly 90 tablet 025 2025 Active fluticasone propionate (FLONASE) 50 mcg/actuation nasal sprayIndications :Chronic rhinitis Administer 2 sprays into each nostril daily 30 mL [address] (PROTONIX) 40 mg EC tabletIndication s:Chronic GERD Take 1 tablet (40 mg total) by mouth daily 90 tablet 3 025 Active rosuvastatin (CRESTOR) 20 mg tabletIndication s:Multiple-type hyperlipidemia Take 1 tablet (20 mg total) by mouth daily 90 tablet 2 025 Active tiZANidine (ZANAFLEX) 2 mg tabletIndication s:Lumbar radiculopathy Take 0.5-1 tablets (1-2 mg total) by mouth nightly as needed for muscle spasms (Chronic low back pain) 025 Active senna-docusate (Senna with Docusate Sodium) 8.6-50 mgIndications:Ch ronic constipation Take 1-2 tablets by mouth daily with dinner With 1 cap full of MiraLax in 10 oz of fluid 60 tablet 11 025 Active traZODone (DESYREL) 50 mg tabletIndication s:Adjustment insomnia TAKE 1 TABLET BY MOUTH NIGHTLY NEEDED FOR SLEEP 90 tablet 1 025 Active propranoloL (INDERAL) 40 mg tablet TAKE 1 & 1/2 (ONE & ONE-HALF) TABLETS BY MOUTH TWICE DAILY 180 tablet 3 025 Active ipratropium (ATROVENT HFA) 17 mcg/actuation inhalerIndicatio ns:COPD with asthma ([facility]) Inhale 2 puffs 2 (two) times a day 3 each 025 Active tiotropium bromide (SPIRIVA RESPIMAT) 2.5 mcg/actuation inhalerIndicatio ns:Maintenance Therapy for Asthma Inhale 2 puffs daily 1 each 2 025 Active albuterol HFA (PROVENTIL HFA,VENTOLIN HFA,PROAIR HFA) 90 mcg/actuation inhaler Inhale 2 puffs every 6 (six) hours as needed for wheezing 2 each 4 025 2025 Active lisinopril-hydro CHLOROthiazide (ZESTORETIC) 10-12.5 mg per tabletIndication s:Benign hypertension with CKD (chronic kidney disease) stage III (HCC) Take 1 tablet by mouth daily with breakfast 90 tablet 1 022 2021 Discontinued ipratropium (ATROVENT) 21 mcg (0.03 %) nasal sprayIndications :Chronic rhinitis Administer 2 sprays into each nostril 2 (two) times a day 30 mL 5 025 2024 Discontinued( Alternate therapy) Active Problems Problem Noted Date Diagnosed Date Pulmonary fibrosis 10/28/2024 Chronic insomnia 07/11/2024 DARSHAN (obstructive sleep apnea) 07/11/2024 Overview (07/11/2024): Moderate DARSHAN by sleep study 07/11/2024 refer to sleep Medicine [facility]. This home sleep apnea test is positive for moderate obstructive sleep apnea with Respiratory Event Index (equivalent of Apnea Hypopnea Index) of 15.2 per hour. The recorded bed time starts at 9:46 pm. The total recording duration is 7:40 hours. The respiratory events (RE) included 5 apneas and 109 hypopneas. The total Respiratory event index (VENKATESH) was 15.2 per hour. Obstructive apnea index was 0.7, central apnea index was 0.0, mixed apnea index was 0.0. Lowest SpO2 was 89 % and time spent < 88% was 0:00 hours. Oxygen desaturation index was 15.2. Patient spent 6:09 hours in supine and 1:07 hours in non-supine position. Average heart rate was 59/min, minimum heart rate was 50/min, and maximum heart rate was 82/min. Chronic constipation 06/09/2024 Overview (06/09/2024): MiraLax 1 scoop not working Senna added 06/09/2024 Numbness and tingling of both feet 02/29/2024 Parkinson's disease ([facility]) 05/28/2023 Assessment & Plan (01/30/2024 9:11 AM CRYSTAL GRINDER): Chronic, Co managed by Neurology. Stable on Sinemet at this time. Continue same History of recurrent UTIs 05/25/2023 Overview (05/25/2023): Artificial bladder, elevated postvoid residual, must catheterize twice daily. Does not have symptoms with UTI because of the artificial bladder situation. Stage 3b chronic kidney disease 12/19/2022 SVT (supraventricular tachycardia) 12/18/2022 Overview (03/10/2024): During hospitalization 12/18/2022 required flecainide 50 mg b.i.d. to keep him from going back into SVT. Medication recommended by Cardiology medical radiation therapist Assessment & Plan (01/30/2024 9:12 AM CRYSTAL GRINDER): Chronic, stable on propranolol and flecainide at this time. Recent CMP unremarkable except for stable CKD, creatinine at baseline of 1.6. Echo from 11/2022 shows EF of 65-70% with mild pulmonary hypertension and no valvular issues Continue same and keep follows with cardiology as scheduled Assessment & Plan (01/14/2023 2:27 PM CRYSTAL GRINDER): Had 30 day event monitor placed in june 2022 for variable HR which showed predominantly sinus rhythm. See recent hospitalization details above. Serial EKGs showed all sinus/sinus tach- no atrial ectopy. ECHO was unremarkable. Continue propranolol and flecanide as rxd. Keep follow up with cardiology in 3 weeks. Urinary retention with incomplete bladder emptyi ng 10/23/2022 Anemia due to chronic kidney disease 10/10/2021 Dysfunction of rotator cuff of both shoulders Assessment & Plan (2022 3:11 PM CDT): Mild improvement with treating shingles. Still having aching pain worse in the morning. No acute exam findings. Likely arthritis. Continue Ibuprofen/Tylenol as needed. Heat/ice as tolerated. Gentle ROM activities encouraged. Assessment & Plan (05/23/2022 1:20 PM CDT): Chronic problem worse in the last 1-2 months. Assessment as noted above. No acute findings, likely tendon related. Will refer to Ortho for another joint injection and further treatment. Rxd 800 Ibuprofen as needed. Heat/ice as tolerated. Gentle ROM encouraged. Assessment & Plan (06/02/2021 12:30 PM CDT): Patient has history of chronic rt shoulder pain which improved with PT in the past. He presents today however, with acute pain post popping sound when lifting his dog. On exam he has positive can test of the rt and pain with overhead raises. No obvious weakness. Concern for possible rotator cuff tear. We will plan xray imaging given acute pain and popping to r/o any acute fracture or dislocation. He will continue with tylenol and tramadol for pain. Encouraged to avoid heavy lifting. He will be referred to PT. Will follow up as scheduled in 2 weeks or sooner if needed. Benign hypertension with CKD (chronic kidney disease) stage III 08/10/2018 Overview (12/29/2019): (-) cardiac workup 2014 PROCEDURE: The patient was exercised according to the Ken protocol for a total of 6 minutes and 33 seconds achieving a peak heart rate of 137 beats per minute which is 91 percent of maximum predicted. Total workload achieved was 7 METS. The test was stopped due to dyspnea. There was no chest pain. Baseline EKG was normal. At peak stress there is diagnostic EKG abnormality. Blood pressure and heart rate response to exertion was appropriate. There was no exercise induced arrhythmias. IMPRESSION: 1. NEGATIVE MAXIMAL EXERCISE STRESS TEST FOR CHEST OR DIAGNOSTIC EKG CHANGES. Dr. Hernandez Assessment & Plan (01/30/2024 9:08 AM CRYSTAL GRINDER): Chronic, at goal. BP stable in office today on current therapy. No acute findings on exam. Recent CMP unremarkable except for stable CKD, creatinine at baseline of 1.6. Echo from 11/2022 shows EF of 65-70% with mild pulmonary hypertension and no valvular issues. Continue propranolol and low salt diet. Keep follows with cardiology and nephrology as scheduled. Assessment & Plan (01/14/2023 2:16 PM CRYSTAL GRINDER): BP stable in office today on current therapy. See recent hospitalization for SVT as noted above. Serial EKGs were all sinus/sinus tach- no atrial ectopy. Repeat ECHO was unremarkable. No acute findings on exam. Continue current regimen and low salt diet. Keep follow with cardiology in 3 weeks. Assessment & Plan (09/06/2022 10:10 AM CDT): BP stable in office today on current therapy. No acute findings on exam. TELE monitor showed predominant NSR with frequent PVCs. Continue current regimen and low salt diet. Assessment & Plan (08/14/2022 8:21 PM CDT): BP elevated in office today at 160/80 VS 178/92 with home cuff. Asymptomatic, admits pressure at home are as high as 160/90s but pulse is 90-130. Currently wearing 30 day TELE monitor. No acute findings on exam, HR regular upon auscultation. Will increase propranolol back to 40mg BID. Low salt diet, avoid excessive caffeine use. Monitor BP daily and record, call if top number consistently above 140 or bottom number above 90. Assessment & Plan (2022 3:08 PM CDT): BP softer than normal but stable today in office. Orthostatic pressures negative. No acute findings on exam. Continue current regimen. Stay hydrated. Dizziness likely related to dehydration or eustachian tube dysfunction. Assessment & Plan (08/27/2019 5:22 PM CDT): Awaiting his labs which are not in the chart. Will send message to box builder to get these from [place]. Continue on current medications for BP which is controlled at this time. History of bladder cancer s/p radical cystectomy 08/10/2018 Overview (10/15/2018): Hx of bladder cancer status post cystectomy with ileal conduit by Dr. Louis tumor free since surgery Assessment & Plan (04/26/2020 9:47 AM CRYSTAL GRINDER): Pt reports that Dr. Aguirre did a cystoscopy and he reported that there were no abnormal findings to explain the abnormal cells in his urine. Assessment & Plan (03/24/2020 9:37 AM CRYSTAL GRINDER): Pt has appt to see his urologist Dr. Aguirre next week. Pt was told that there were abnormal cells in his recent urine testing. Chronic rhinitis 12/10/2016 Chronic GERD 12/10/2016 Assessment & Plan (08/27/2019 5:21 PM CDT): Pt states his symptoms are managed with his prilosec--he will continue on this. Multiple-type hyperlipidemia 07/12/2013 Overview (06/02/2016): Hyperlipidemia COPD with asthma 07/12/2013 Overview (06/02/2016): COPD (chronic obstructive pulmonary disease) Assessment & Plan (01/30/2024 9:05 AM CRYSTAL GRINDER): Chronic, stable on p.r.n. albuterol at this time. Lungs clear, satting 98% on room air. CT chest from 06/2023 confirms mild emphysema/fibrosis but no other acute changes. Continue same Abdominal aortic aneurysm (AAA) without rupture 01/01/2013 Overview (01/14/2023): CT abdomen 12/18/22 1. Redemonstrated postoperative changes from cystoprostatectomy with neobladder formation. Increased moderate bilateral hydronephrosis compared to 2019. 2. Increase in size of a 5.0 cm infrarenal abdominal aortic aneurysm compared to 2019. Follow-up CT angiogram may be performed for further evaluation. 3. Colonic diverticulosis without CT evidence of acute diverticulitis. 4. Small hiatal hernia. Indeterminate thickening of the stomach, likely due to under distension. 5. Progressive moderate-severe lower lumbar degenerative disc disease. 6. No gross acute cardiopulmonary abnormality. Mild emphysema with mild lower lung predominant scarring/fibrosis. KUB Dr. Danny Winters office aneurysm 5.[address] scan abdomen pelvis because of that x-ray confirmed aneurysm 4.5 cm not significantly enlarged over 2018 testing January 03, 2018 4.3 cm aneurysm on onogram AAA 2013 = 3.7 CM INFRARENAL ABDOMINAL AORTIC ANEURYSM, STABLE. (abdominal aortic aneurysm) a followed at bladder cancer sonogram or CT every other year with Dr. Louis Assessment & Plan (01/14/2023 1:57 PM CRYSTAL GRINDER): CT chest/abdomen/pelvis performed while in hospital for SVT showed AAA had grown to approx 5 cm. No acute findings on exam, no tenderness or bruit. Has follow with cardiology in 3 weeks. H&H had improved to 8.0/24 upon discharge. BP stable. Continue current regimen. Resolved Problems Problem Noted Date Diagnosed Date Resolved Date Lumbar radiculopathy 09/27/2023 025 Tiredness 07/31/2023 06/09/2024 Dermatochalasis of both upper eyelids 07/06/2023 01/28/2024 Parkinson's disease ([facility]) 01/30/2023 05/28/2023 Pancytopenia 12/21/2022 06/09/2024 Macrocytic anemia 12/21/2022 05/28/2023 Moderate protein-calorie malnutrition 12/19/2022 09/27/2023 Acute cystitis without hematuria 12/19/2022 05/25/2023 Acute pain of right shoulder 09/06/2022 03/13/2023 Assessment & Plan (09/06/2022 10:12 AM CDT): Worsening over approx 3 months. Tenderness and decreased ROM as noted above. PT has shown mild improvement. Has follow with Ortho next week. Will add Gabapentin 100mg nightly. Refilled 800mg Ibuprofen PRN. Continue current regimen. Heat/ice as tolerated. Adjustment insomnia 07/21/2022 05/25/19 Shingles (herpes zoster) polyneuropathy 07/21/2022 05/28/2023 Shingles 05/26/2022 07/21/2022 Assessment & Plan (2022 3:11 PM CDT): Cleared with 2 weeks worth of Valtrex. Assessment & Plan (05/26/2022 3:42 PM CDT): Rash for 3 days. Assessment as noted above. Rxd valtrex as directed. Continue motrin as needed. Call if symptoms not improved in 1 week. Cervicalgia 05/22/2022 07/21/2022 Assessment & Plan (05/23/2022 1:25 PM CDT): Chronic problem, worse over last month. seems to radiate from shoulder. No acute exam findings. Likely muscular, rxd 800 ibuprofen as needed. Heat/ice as tolerated. Gentle ROM encouraged. Will refer to Ortho for shoulder pain. Bilateral calf pain 04/07/2022 07/22/19 Assessment & Plan (04/07/2022 3:30 PM CRYSTAL GRINDER): Recurrent problem over the last few months, recently exacerbated this morning without relief with normal interventions (ambulation and heat, see HPI for details) Physical examination as documented - no signs/symptoms of serious illness noted Suspect spasm vs DVT vs arterial insufficiency (less likely due to 2+ dorsalis pedis pulses on examination) Recommended US to rule out clots, trial of tizanidine, and continued supportive measures at this time - patient agreeable to plan NEXT STEP: If no DVT and supportive measures are ineffective, could consider ABIs to assess for arterial insufficiency Orders for AMS STAFF to arrange US doppler of bilateral lower extremities - bilateral calf pain, rule out DVT Orders for Kadeem Sinha to arrange Start tizanidine as needed for muscle spasm Continue OTC acetaminophen as needed for pain Continue heating pad as needed for pain Consider daily stretching of the calf muscles to help prevent spasm Continue monitoring symptoms - report persistent or worsening symptoms to the office or go to ER Office to follow up after receiving results of US Follow up as scheduled with Dr. Lawrence or sooner if necessary Enuresis 03/14/2022 09/06/2022 Fecal smearing 03/14/2022 09/06/2022 Dysfunction of both eustachian tubes 03/14/2022 05/28/2023 Shortness of breath 12/16/2021 07/22/19 Overview (12/16/2021): Suspected related to methotrexate use which was immediately suspended. Symptoms much better 6 weeks off the medication Lung function testing done six-weeks off of the medication Testing not yet completed December 07, 2021 chest x-ray 2D Echocardiogram with Doppler Assessment & Plan (05/23/2022 1:26 PM CDT): Only with a deep breath, no acute findings on exam. EKG in office today showed sinus tach at 121 , no acute changes. likely muscular or referred from shoulder. Rxd 800 Ibuprofen as needed. Heat/ice as tolerated. Viral pharyngitis 01/18/2021 03/14/2022 Assessment & Plan (01/18/2021 2:17 PM CRYSTAL GRINDER): Patient presents with c/o of severe sore throat on and off since Sunday. He has some associated rhinorrhea, but no other complaints. He denies cough, reflux or fever. On exam no acute findings. Rapid covid 19 and strep testing were negative. He was encouraged to do supportive care he is to call with any worsening or persistent symptoms. Diaphoresis 09/24/2020 07/22/2021 SVT (supraventricular tachycardia) 08/25/2020 12/18/2022 Assessment & Plan (08/14/2022 8:26 PM CDT): Currently wearing 30 day TELE monitor to r/o paroxsymal arrhythmia. Pulse with BP cuff at home running 90-130s. BP mildly elevated. No acute findings on exam. Will increase Propranolol to 40mg BID. Avoid excessive caffeine use. Monitor BP and HR daily and record. Given parameters to call office if abnormal. Passage of bloody stools 06/07/2020 Abdominal pain 06/07/2020 07/22/2021 Parkinson's disease (tremor, stiffness, slow motion, unstable posture) 02/24/2020 06/09/2024 Overview (12/25/2022): BLACK scan 10/12/2022 for Parkinson's ordered by Dr. Ca IMPRESSION: Mild asymmetric decreased activity in the right putamen suggesting a presynaptic dopaminergic defect. Correlate clinically suggest follow-up exam. Electronically signed by: Jacquelin Pagan M.D. Treated successfully with Sinemet since 2019. Second opinion evaluation Dr. Ca 2022 agreed. BLACK scan ordered Assessment & Plan (08/07/2022 3:09 PM CDT): Chronic problem currently controlled on current dose of sinemet. L arm tremors seem to be worsening and patient has had rare episodes of dizziness. Course tremors to LUE as noted above, no other acute neurological findings. Has follow with Dr. Ca on 10/03/22. Continue current regimen. Assessment & Plan (04/26/2020 9:44 AM CRYSTAL GRINDER): He did not increase the dose to 1.5 tabs TID. I have asked him today if he would like to try increasing the dose in the case that he might see the tremor decrease some. He said he would like to try it at the 1.5 tab TID dose and see if he can tell a difference in the left hand tremor. He will f/u with Dr. MAURICE in June as planned. If he has any problems with the increase in the Sinemet--he will call me. Assessment & Plan (03/24/2020 1:07 PM CRYSTAL GRINDER): PT and his report that they have not seen a change in his left handed tremor since starting the sinemet. I have consulted with Dr. MAURICE and she states that we can go up on this today. Therefore, we will have him to start out on 1 full tablet TID for 3 days, and then if tolerated, he can increase up to 1.5 tabs TID. He will f/u with me in one month and then with Dr. MAURICE in June 2020. Sleep disorder 02/24/2020 03/14/2022 Assessment & Plan (03/24/2020 9:34 AM CRYSTAL GRINDER): Pt reports that his sleeping has improved and he is happy to keep taking the melatonin as he thinks it has helped. Continue melatonin 5mg at bedtime. Bleeding nose 02/24/2020 07/22/2021 Assessment & Plan (03/24/2020 9:39 AM CRYSTAL GRINDER): Pt states that the bactroban that Dr. MAURICE has given him has worked and he isn't having to use it at this point, and that he thinks his nose has healed up. 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 No acute symptoms or findings on exam today. No recent brain imaging. Continue Aricept and Sinemet as prescribed Assessment & Plan (04/26/2020 9:42 AM CRYSTAL GRINDER): Aricept is at 5mg nightly. He is not having problems with diarrhea. Continue at 5mg nightly. Assessment & Plan (03/24/2020 1:09 PM CRYSTAL GRINDER): Last visit patient was instructed to go up on the Aricept to 10mg daily. He and his agree that they have not seen any difference in his memory. He has developed diarrhea since being on the Aricept. We have recommended that he go back down to 5mg once daily. Loss of balance 12/29/2019 03/14/2022 Rib pain on right side 11/05/201912/28 Assessment & Plan (11/05/2019 10:23 AM CDT): Describes intermittent R flank pain for about 1 month now, with no associated symptoms. Tenderness over the ribs 8-10 on exam--will get an x-ray today to R/O fracture. Since he does not recall an injury, more likely to be musculoskeletal in nature, possibly a pulled muscle as pt does recall laying on the ground for some time to fix a car. We should also do a chest x-ray today to R/O lung lesion or pneumonia since he has had now for about 1 month, and also pt has hx of cancer. CBC today to R/O infectious process like kidney infection, and checking for UTI today with UA/CS. He also does not admit to constipation today but we will check a KUB incase constipation is the cause of this right sided back pain. Right hip pain 08/27/2019 06/09/2024 Assessment & Plan (03/13/2023 2:47 PM CRYSTAL GRINDER): Started last night, see HPI for details. Tenderness as noted above, no other acute findings. Will order XR to r/o structural changes or worsening arthritis. Take Tylenol IM and ES as instructed. No NSAIDs due to CKD. Heat/ice as tolerated. Gentle ROM activities encouraged. Reviewed fall precautions. Call if no improvement in 2 weeks. Assessment & Plan (08/27/2019 5:25 PM CDT): Pt states he had x-rays done at [facility] a few months back. I suggested P.T. and he states that he does not think he can do that right now with the condition that his is in. I advised that he call us if and when he decides he can do it. He agrees. He will continue to take his nightly tramadol. I have asked the nurse to refill this medication for him since I am unable to do it through e-prescribe. Fever 05/26/2019 12/29/2019 Assessment & Plan (05/26/2019 3:29 PM CDT): Etiology unclear most likely viral in nature. CBC pending to r/o any signs of infection. There is concern with his symptoms for possible COVID-19, we will await testing results. At this time symptom management with tylenol for pain and fever. He was encouraged to rest and increase his fluid intake. Respiratory tract infection 05/26/2019 12/29/2019 Assessment & Plan (05/26/2019 3:32 PM CDT): Symptoms consistent with viral respiratory infection. He has cough, SOB and reports of fever. CXR done outside facility and no signs of PNA. We have contacted COVID-19 hotline and given patient symptoms and co-morbid conditions he will be screened. He was provided with info for protecting himself and others he may be in contact with. He was instructed should he develop any worsening SOB he is to go to the ER for further evaluation. Dupuytren contracture 04/28/20192023 Other chronic pancreatitis 12/23/2018 1 02/27/2019 Overview (12/29/2019): Remains completely asymptomatic, the Condition found on CT scan abdomen looking for his aneurysm enlargement on 12/23/2018 done at [facility] discharge follow-up 08/19/2018 05/25/2023 Assessment & Plan (01/14/2023 2:20 PM CRYSTAL GRINDER): See hospital details and testing as noted above. Reviewed testing and labs with both patient and son-in law. Med reconciliation completed in office today. No acute findings on exam, labs improved upon discharge. Will re-check CBC, ESR, CRP, and RF in 4 weeks. Continue flecanide as rxd, keep cardiology follow in 3 weeks. Assessment & Plan (08/19/2018 2:26 PM CDT): Patient mid to hospital on 08/12/2018 for because of rectal bleeding. He was discharged in 2 days no further bleeding while in the hospital was monitored.. Since being home everything is been normal. He had a colonoscopy done on outpatient basis only hemorrhoids were for found. Patient this time effective a baseline in doing well. Rectal bleeding 08/10/2018 10/15/2018 Assessment & Plan (08/19/2018 2:17 PM CDT): CBC, ferritin level will be done today patient a colonoscopy is since leaving the hospital. Results were perfectly normal colonoscopy was done at [facility]. Patient's has had no further bleeding since admission to [facility]. 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 This was stopped in hospital due to H&H drop to 6.4/19-they gave 1u PRBC in hospital. He was instructed to stop methotrexate until his bloodwork improves. H&H up to 8.0/24 upon discharge last week. No acute findings on exam today, reports normal aches. Will recheck CBC, ESR, CRP, and RF in 4 weeks. Stay off methotrexate for now, continue folic acid. Will REFER To rheumatology for further assessment. Assessment & Plan (08/27/2019 5:20 PM CDT): Pt states that he is doing well on his RA meds so we will not change anything today. Continue current regimen. Recurrent urinary tract infection 07/12/2013 12/29/2019 Overview (05/31/2016): Recurrent urinary tract infection Persistent insomnia 07/12/2013 06/21/19 Overview (06/01/2016): Insomnia, persistent Grief 07/12/2013 12/23/2017 Overview (06/01/2016): Feeling grief History of bladder cancer 07/12/2013 Overview (07/11/2018): Hx of bladder cancer status post cystectomy with ileal conduit by Dr. Louis tumor free since surgery Essential tremor 07/12/2013 09/06/2022 Overview (06/02/2016): Tremor Chronic pain disorder 07/12/20132023 Overview (06/02/2016): Chronic low back pain Hx of adenomatous colonic polyps 01/01/2013 12/29/2019 Overview (12/29/2019): Adenomatous colon polyp, [address] Rodas Colonoscopy test - Dr. Squires - Anal fissure and perianal skin tags found on perianal exam. - Diverticulosis in the sigmoid colon. - Internal hemorrhoids. - No specimens collected. Recommendation: - Repeat colonoscopy is not recommended. Cobalamin deficiency 06/19/2012 020 Overview (12/29/2019): B12 deficiency, B12 normal = 5 14 on December 2018. Problem resolved Bladder cancer 12/29/2019 Encounters Date Type Department Care Team Description 10/29/2024 9:41 AM CDT Hospital Encounter [facility] [address] [place] [address] COPD with asthma (HCC); Pulmonary fibrosis 10/28/2024 10:30 AM CDT Office Visit [facility] [address] [facility] [address] [place] [phone] Elizabeth Hussein NP COPD with asthma (HCC) (Primary Dx); Pulmonary fibrosis; Encounter for screening for lung cancer 10/20/2024 Telephone [facility] [address] [facility] [address] [place] [phone] Cari Lawrence MD 10/16/2024 Results Follow-Up [facility] [address] [place] [address] [address] [place] [address] Gerson Villalpando MD PSG 10/03/2024 7:00 PM CDT - 10/03/2024 11:59 PM CDT Hospital Encounter [facility] [address] [place] [address] DARSHAN (obstructive sleep apnea) Discharge Disposition: Discharge to home or self care 09/25/2024 8:50 AM CDT - 09/25/2024 11:59 PM CDT Hospital Encounter [place] [id number] Stage 3b chronic kidney disease (HCC) Discharge Disposition: Discharge to home or self care 09/25/2024 8:45 AM CDT Lab [facility] at [address] [phone] Stage 3b chronic kidney disease (HCC) (Primary Dx) 09/22/2024 2:00 PM CDT Office Visit [facility] [address] [facility] [address] [place] [address] Gerson Villalpando MD Hypersomnia with sleep apnea (Primary Dx); DARSHAN (obstructive sleep apnea); Overweight (BMI 25.0-29.9) 09/18/2024 Telephone [facility] [address] [facility] [address] [place] [phone] Cari Lawrence MD Ortho Referral 09/08/2024 10:00 AM CDT Office Visit [facility] [address] [facility] [address] [place] [address] Tomas Dunham MD Abdominal aortic aneurysm (AAA) without rupture, unspecified part (Primary Dx); Mesenteric artery stenosis; Aneurysm of hepatic artery 09/08/2024 9:05 AM CDT - 09/08/2024 11:59 PM CDT Hospital Encounter [facility] [address] [place] [address] Abdominal aortic aneurysm (AAA) without rupture, unspecified part Discharge Disposition: Discharge to home or self care 09/01/2024 Telephone [facility] [address] [place] [address] Cari Lawrence MD 08/07/2024 Telephone [facility] [address] [place] [address] Cari Lawrence MD from Last 3 Months Immunizations Immunization Administration Dates Next Due Influenza, Quad, Adjuvantate d, Intramuscular 11/20/2019 Influenza, Quadrivalent, Hig h Dose, Preservative Free, Intrr 12/16/2021,01/16/2021 Influenza, Quadrivalent, Spl it, Intramuscular 12/18/2016,01/04/2016 Influenza, Split 01/01/2013 Influenza, Trivalent, High D ose, Split, Preservative Free, Intramuscular 12/18/2023,12/24/2018,12/28/2017 Influenza, Trivalent, IM (MDV) 12/25/2014,2013 Influenza, Unspecified 12/14/2022(Deferr ed: Patient Refused),01/16/2021,11/21/2019 Pfizer SARS-CoV-2 Monovalent Vaccination (12+ Yrs) PURPLE 05/07/2020,04/16/2020 Pneumococcal Conjugate PCV 13 11/20/2014 Pneumococcal Conjugate Pcv20 05/30/2023 Pneumococcal Polysaccharide PPV23 01/04/2016, TD Preservative Free 12/26/2002 Tdap 05/30/2023,11/24/2011 ZOSTER LIVE 01/22/2015,12/07/2013 ZOSTER Recombinant 03/26/2019,01/25/2019 Surgical History Surgery Date Site/Laterality Comments PROSTATECTOMY 12/28/2003 - 01/26/2004 ProstatectomyAre and read a ladder ileal conduit Dr. Louis APPENDECTOMY Appendectomy HERNIA REPAIR 09/02/2011 Left left inguinal hernia CYSTECTOMY W/ URETEROILEAL CONDUIT 12/28/2003 - 01/26/2004 radical cystectomyh and ilial neobladder Dr. Louis COLONOSCOPY W/ BIOPSIES AND POLYPECTOMY 12/21/2014 [place] (+) tubular adenoma x3 COLONOSCOPY 11/12/2018 (-) Dr. Squires, anal fissure. Diverticulosis. No polyps. Advise no further colonoscopies Medical History Medical History Date Comments Hypertension Hyperlipidemia GERD (gastroesophageal reflu x disease) Migraine-cluster headache syndrome Bladder cancer (HCC) Colon polyp Arthritis RA HNP (herniated nucleus pulpo zuleyma), cervical HNP (herniated nucleus pulpo zuleyma), lumbar Hx of adenomatous colonic polyps 01/01/2013 Adenomatous colon polyp, [address] Rodas Colonoscopy test - Dr. Squires - Anal fissure and perianal skin tags found on perianal exam. - Diverticulosis in the sigmoid colon. - Internal hemorrhoids. - No specimens collected. Recurrent urinary tract infection 07/12/2013 Recurrent urinary tract infection Cobalamin deficiency 06/19/2012 B12 deficie ncy, B12 normal = 5 14 on December 2018. Problem resolved Other chronic pancreatitis 12/23/2018 Remai ns completely asymptomatic, the Condition found on CT scan abdomen looking for his aneurysm enlargement on 12/23/2018 done at [facility] Pancytopenia 12/21/2022 Rheumatoid arthritis involvi ng multiple sites with positive rheumatoid factor (HCC) 08/11/2015 Family History Medical History Relation Name Comments Heart attack Father Other Mother Relation Name Status Comments Father (Age 75) Mother Social History Tobacco Use Types Packs/Day Years Used Date Smoking Tobacco: Former Smokeless Tobacco: Never Tobacco Cessation:Counseling Given: Not Answered Alcohol Use Standard Drinks/Week Comments Yes 21 (1 standard drink = 0.6 oz pu re alcohol) [facility] Utilities Answer Date Recorded In the past 12 months has [employer], gas, oil, or water [employer] threatened to shut off services in your [...] often do you attend chur ch or uatsdin services? Never 08/10/2023 Do you belong to any clubs o r organizations such as sabianism groups, unions, fraternal or athletic groups, or [...] place to sleep or slept in a care home (including now)? No 12/19/2022 PHQ-9 Answer Date [...] any time in the past 12 m [facility], were you homeless or living in a care home (including now)? No 08/10/2023 Personal Safety Answer [...] on file Legal Sex Male 3:43 PM CRYSTAL GRINDER Gender Identity Male 03/09/2022 10:24 AM CRYSTAL GRINDER Sexual Orientation Not on file Occupation Industry Job Start Date Job End Date retired Not on file Not on file Not on file Obstetrics History Last Filed Vital Signs Vital Sign Reading [...] Mass Index 29.13 10/28/2024 10:21 AM CDT Plan of Treatment Health Maintenance Due Date Last Done Comments Covid-19 Vaccine (2023- 5 season) 2024 12/18/2023, 01/07/2022, 07/18/2021, Additional history exists Influenza Vaccine (#1) 2024 4, 12/16/2021, 01/16/2021, Additional history exists Fall Risk Assessment 06/09/2025 06/09/2024, 05/28/2023, 12/23/2022, Additional history exists Well Visit 65+ 06/09/2025 06/09/2024, 04/0 02/2023, 10/28/2021, Additional history exists Depression Screening 10/28/2025 10/28/2024, 06/09/2024, 05/28/2023, Additional history exists DTaP/Tdap/Td Vaccine (3 - Td or Tdap) 05/29/2033 05/30/2023, 11/24/2011, 12/26/2002 Hepatitis C Screening Completed 11/17/2015 Colon Cancer Screening-CT Colonography Discontinued 08/12/2018, 12/21/2014, 12/21/2014, Additional history exists Colon Cancer Screening-Colonoscopy Discontinued 08/12/2018, 12/21/2014, 12/21/2014, Additional history exists Colon Cancer Screening-DNA Stool Discontinued 08/12/2018, 12/21/2014, 12/21/2014, Additional history exists Colon Cancer Screening-FIT Discontinued 08/12, 08/10/2018, 12/21/2014, Additional history exists Colon Cancer Screening-FOBT Discontinued 07/27, 08/10/2018, 12/21/2014, Additional history exists Colon Cancer Screening-Sigmoidoscopy Discontinued 08/12/2018, 12/21/2014, 12/21/2014, Additional history exists Colorectal Cancer Screening Discontinued Zoster Vaccine Completed 03/26/2019, 12/29, 01/22/2015, Additional history exists Pneumococcal vaccine 65+ Completed 024, 01/04/2016, 11/20/2014, Additional history exists Hepatitis B Screening Completed 06/09/2024, 016 Abdominal Aortic Aneurysm (A AA) Screen Completed 09/08/2024, 09/08/2024, 09/08/2024, Additional history exists Procedures Procedure Name Priority Date/Time Associated Diagnosis Comments PULMONARY FUNCTION TEST (PFT) Routine 10/29/2024 10:16 AM CDT COPD with asthma (HCC) Pulmonary fibrosis AMBULATORY OXIMETRY Routine 10/28/2024 1 1:26 AM CDT COPD with asthma (HCC) Pulmonary fibrosis PSG (SIMPLE) Routine 10/07/2024 8:41 AM CDT DARSHAN (obstructive sleep apnea) EGFR Routine 09/25/2024 8:50 AM CDT Stage 3b chronic kidney disease (HCC) CBC WITHOUT DIFFERENTIAL Routine 09/25/2024 8:50 AM CDT Stage 3b chronic kidney disease (HCC) RENAL FUNCTION PANEL Routine 09/25/2024 8:50 AM CDT Stage 3b chronic kidney disease (HCC) PTH Routine 09/25/2024 8:50 AM CDT Stage 3b chronic kidney disease (HCC) VITAMIN D 25 HYDROXY Routine 09/25/2024 8:50 AM CDT Stage 3b chronic kidney disease (HCC) IRON PROFILE W/ IBC Routine 09/25/2024 8 :50 AM CDT Stage 3b chronic kidney disease (HCC) CTA ABDOMEN PELVIS W WO CONTRAST Schedule Routine, Read Routine (OP Routine) 09/08/2024 9:34 AM CDT Abdominal aortic aneurysm (AAA) without rupture, unspecified part POCT CREATININE FOR CONTRAST EVALUATION Routine 09/08/2024 9:20 AM CDT COLONOSCOPY 08/12/2018 12:08 PM CDT HEPATITIS C ANTIBODY Routine 11/17/2015 8:54 AM CDT from Last 3 Months or Most Recently Relevant to Health Maintenance Results * AMBULATORY OXIMETRY (10/28/2024 11:26 AM CDT) Renee Marinelli MA - 10/28/2024 11:26 AM CDT Resting [...] 1 minute on 4L of oxygen. [employer]PL[employer]EE ADVISER us Elizabeth Hussein NP IN CLINIC/BEDSIDE ORDERABLES Fin al Result * PSG (10/07/2024 8:41 AM CDT) Impressions Gerson Villalpando MD - 10/07/2024 8:41 AM CDT Indication for study: Mr. Sinha is a 79-year-old gentleman with chief complaints of snoring, unrefreshing sleep and daytime fatigue and sleepiness. The patient's [place] Sleepiness scale score is 4. A recent polysomnography confirms evidence of obstructive sleep disorder breathing which was moderate in severity. The present study was ordered as a titration study. Vital statistics: Age: 79 years Height: 67 in Weight: 186 lb BMI: 29.2 Procedure: A polysomnographic sleep study was performed. Variables monitored and recorded during the study; EEG, EOG, EKG, Chin EMG, snoring, lower extremity EMG, nasal and oral airflow, chest and abdominal wall movements, oxygen saturation and audio/video monitoring . Unless otherwise noted, polysomnogram was recorded and scored in accordance with recommended parameters as outlined in the AASM Manual for the Scoring of Sleep and Associated Events, Version 2.6. Hypopneas were scored in accordance with acceptable parameters as outlined in Chapter VIII, Part 1: Rules for Adults, Category D, Section 1B. Description of polysomnography findings: The patient had 393.6 minutes of monitored time. 155 minutes total sleep was present. Sleep efficiency was 39.4%. Latency from lights out to stage N1 was 61.9 minute, latency to stage N2 from sleep onset was 0.5 minute, latency stage N3 from sleep onset was 7.5 minutes, latency to stage REM from sleep onset 193.5 minutes. Sleep stage recording stage wake of 239 minutes. Stage non-REM comprised 145.5 minute (93.2% total sleep time). This includes stage N1 was 18.5 minute (11.9% total sleep time), stage N2 114.5 minute (73.9% total sleep time), stage N3 of 11.5 minute (7.4% total sleep time). Stage REM comprised 10.5 minute (6.8% total sleep time). Positive pressure therapy was initiated and continuous positive pressures of 4 cm attempted. Total recording time was 394 minutes. Sleep efficiency 39.3%. Brief REM was obtained. Residual AHI was 0. Lowest oxygen saturation 86% . The average oxygen saturation 95.6%. Patient demonstrated poor tolerance to positive pressure therapy. A medium Morgan [employer] Vitera fullface mask was used Limb movement recording revealed 5 periodic limb movements. Periodic limb movement index 1.9. Periodic limb movement arousal index 1.5. Average heart rate during wake was 57.9, and sleep was 53.7 Impression: 1. Reduced sleep efficiency 2. Poor tolerance to continuous positive pressure therapy 3. Continuous positive pressure therapy of 4 cm was found to be optimal 4. Large Vitera fullface mask was used. 5. Sleep hygiene should be reviewed to assess factors that may improve sleep quality. 6. Weight management and regular exercise should be initiated or continued 7. Avoid alcohol sedatives and other SECURITY AND COMPLIANCE PROJECT MANAGER depression that may worsen sleep apnea and disrupt normal sleep architecture 8. Patients with sleep apnea may have significant daytime hypersomnolence. If that is the case, driving or handling heavy machinery should be avoided until the apnea and excessive sleepiness have resolved. Narrative Gerson Villalpando MD - 10/07/2024 8:41 AM CDT In lab study is ready for review us Gerson Villalpando MD [facility] ORDERABLES Final Re sult * (ABNORMAL) eGFR (09/25/2024 8:50 AM CDT) eGFR 46(L) >=60 mL/min/1. 73 m2 Comment: Interpretive Data Reference Interval Normal >/= 90 mL/min/1.73m2 Mildly decreased* 60 - 89 mL/min/1.73m2 Mildly to moderately decreased 45 - 59 mL/min/1.73m2 Moderately to severely decreased 30 - 44 mL/min/1.73m2 Severely decreased 15 - 29 mL/min/1.73m2 Kidney Failure < 15 mL/min/1.73m2 *Relative to young adult level Estimated glomerular filtration rate is determined by the 2020 CKD-EPI equation recommended by the National Kidney Foundation (A Unifying Approach to GFR Estimation: Recommendations of the NKF-ASK Task Force on Reassessing the Inclusion of Race in Diagnosing Kidney Disease, JASN 202). The CKD-EPI equation should not be used for patients with unstable renal function and has not been validated in children and those over 70. Current interpretive data was last reviewed 2020. Blood 09/25/2024 8:50 AM CDT 09/25/2024 4:35 PM CDT Otoniel Jenkins MD LAB BLOOD ORDERABLES Fin al Result Performing Organization Address City/[facility] Co de Phone Number HIMANSHU [address] [employer] [place], [place] [phone] * (ABNORMAL) Iron profile w/ IBC (09/25/2024 8:50 AM CDT) Iron 67 50 - 150 mcg/dl TIBC 244(L) 250 - 400 mcg/dL [facility] Transferrin saturation 27 20 - 50 % [facility] Blood 09/25/2024 8:50 AM CDT 09/25/2024 4:35 PM CDT Narrative [facility] - 09/25/2024 5:26 PM CDT FAX RESULTS TO [phone] OTONIEL JENKINS Otoniel Jenkins MD LAB BLOOD ORDERABLES Fin al Result Performing Organization Address City/[facility] Co de Phone Number [facility] [address] [employer] [place] [address] * Vitamin D 25 hydroxy (09/25/2024 8:50 AM CDT) Vitamin D 25-OH 35 30 - 80 ng/mL Blood 09/25/2024 8:50 AM CDT 09/25/2024 4:35 PM CDT Narrative [facility] - 09/25/2024 5:46 PM CDT FAX RESULTS TO [phone] OTONIEL JENKINS Otoniel Jenkins MD LAB BLOOD ORDERABLES Fin al Result [facility] [place]RIFFIN [address] Department of [employer] [place] [address] * (ABNORMAL) CBC without differential (09/25/2024 8:50 AM CDT) WBC 5.45 3.80 - 9.90 K/cumm Hgb 10.3(L) 13.0 - 17.5 g/dL [facility] Hct 34.0(L) 38.9 - 50.3 % [facility] Plt 134(L) 150 - 400 K/cumm [facility] MPV 9.4 9.1 - 12.3 fL [facility] RBC 3.34(L) 4.30 - 5.80 M/cumm [facility] MCV 101.8(H) 81.3 - 96.4 fL [facility] MCH 30.8 27.1 - 33.3 pg [facility] MCHC 30.3(L) 32.3 - 35.7 g/dL [facility] RDW CV 17.3(H) 11.1 - 14.9 % [facility] RDW SD 65.0(H) 35.7 - 48.1 fL [facility] NRBC abs 0.00 0.00 - 0.01 K/cumm [facility] Blood Venous blood specimen / Unknown 09/25/2024 8:50 AM CDT 09/25/2024 4:35 PM CDT Narrative [facility] - 09/25/2024 5:00 PM CDT FAX RESULTS TO [phone] OTONIEL JENKINS Otoniel Jenkins MD LAB BLOOD ORDERABLES Fin al Result [facility] GRIFFIN [address] Department [employer] [place], [place] [phone] * PTH (09/25/2024 8:50 AM CDT) PTH 64 15 - 65 pg/mL Blood Venous blood specimen / Unknown 09/25/2024 8:50 AM CDT 09/25/2024 4:35 PM CDT Narrative [facility] - 09/25/2024 5:46 PM CDT FAX RESULTS TO [phone] OTONIEL JENKINS Otoniel Jenkins MD LAB BLOOD ORDERABLES Fin al Result [facility] [address] Department [place] [address] * (ABNORMAL) Renal function panel (09/25/2024 8:50 AM CDT) Sodium 142 135 - 145 mmol/L Potassium, pl 5.4(H) 3.3 - 4.9 mmol/L [facility] Chloride 111(H) 97 - 110 mmol/L [facility] CO2 21(L) 22 - 32 mmol/L [facility] Anion gap 10 2 - 15 mmol/L [facility] BUN 34(H) 6 - 25 mg/dL [facility] Creatinine 1.53(H) 0.80 - 1.30 mg/dL [facility] Glucose 132 70 - 199 mg/dL [facility] Comment: Interpretive Data Fasting glucose >/= 126 mg/dl is diagnostic for diabetes. Fasting is defined as no caloric intake for at least 8 hours. Fasting glucose between 100 mg/dl to 125 mg/dl is diagnostic of prediabetes. In a patient with classic symptoms of hyperglycemia or hyperglycemic crisis, a random glucose >/= 200 mg/dl is diagnostic for diabetes. In the absence of unequivocal hyperglycemia, results should be confirmed by repeat testing. The classification and Diagnosis of Diabetes Diabetes Care 2021; 46: S19-S40. Current interpretive data was last revised 2022. Calcium 8.8 8.5 - 10.3 mg/dL [facility] Phosphorus, pl 3.5 2.3 - 4.5 mg/dL [facility] Albumin 4.0 3.5 - 5.0 g/dL [facility] Blood Venous blood specimen / Unknown 09/25/2024 8:50 AM CDT 09/25/2024 4:35 PM CDT Narrative [facility] - 09/25/2024 5:26 PM CDT FAX RESULTS TO [phone] OTONIEL JENKINS us Otoniel Jenkins MD LAB BLOOD ORDERABLES Fin al Result [facility] GRIFFIN [address] Department [place] [address] * CTA Abdomen Pelvis (09/08/2024 9:34 AM CDT) Anatomical Region Laterality Modality Body N/A Computed Tomogra phy 09/08/2024 9:45 AM CDT Impressions 09/08/2024 9:45 AM CDT 1. No new findings. 2. Stable size of infrarenal abdominal aortic aneurysm. 3. Similar common hepatic artery aneurysm. 4. 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 5. Similar right natalee-bladder diverticulum abutting adjacent small bowel. Cannot exclude fistulous tract versus potential scarring given continued close proximity with the small bowel. May consider CT cystogram if clinical concern for fistula. 6. Chronic findings as above. Electronically signed by: Miguel Ángel Contreras II, D.O. Narrative 09/08/2024 9:45 AM CDT EXAMINATION: CTA ABDOMEN PELVIS HISTORY: Abdominal aortic aneurysm follow-up. COMPARISON: 09/07/2023. TECHNIQUE: Transaxial computed tomographic images of the abdomen and pelvis were obtained after the administration of 90 mL of Optiray 350 intravenously. Multiplanar coronal and oblique images were reformatted. Noncontrast images were obtained from the aortic arch through the pelvis. Postcontrast arterial phase images were obtained from the aortic arch to the pelvis. 3D images were prepared on a separate workstation as part of this examination. FINDINGS: VASCULAR: There is an infrarenal abdominal aortic aneurysm measuring 5.1 x 4.8 cm with curvilinear eccentric soft plaque anteriorly, unchanged from prior. No significant change in shape and configuration of the aneurysm. There is similar moderate stenosis of the mid celiac artery, series 8 image 118. No significant flow-limiting stenosis in the superior mesenteric artery. No significant renal artery stenosis. Inferior mesenteric artery is patent. Similar small eccentric aneurysm of the infrarenal abdominal aorta measuring 0.8 x 0.7 cm with chronic thrombosis, unchanged from prior, series 8 image 178. No significant flow-limiting stenosis in the common iliac, external iliac, and internal iliac arteries bilaterally. Other structures: Similar diffuse interlobular septal thickening in the bilateral lung bases suggestive of nonspecific interstitial pneumonia pattern. No appreciable change from prior. Small hiatal hernia. Small calcified granulomas in the spleen. Visualized portions of the liver, gallbladder, and pancreas are unremarkable. Adrenal glands are normal. Lobular contour of both kidneys. Simple cysts in the left kidney. There is diverticulosis. No evidence of diverticulitis. Partial small bowel resection. No pathologic by size criteria lymphadenopathy. No acute osseous abnormality. Multilevel intervertebral disc disease appears most significant from L2-L3 through L4-L5. No significant change in appearance of the bladder with similar right natalee-bladder diverticulum. Cannot exclude potential fistulous tract between the bladder and small bowel, series 5 image 159. Procedure Note Miguel Ángel Contreras II, DO - 09/08/2024 EXAMINATION: CTA ABDOMEN PELVIS HISTORY: Abdominal aortic aneurysm follow-up. COMPARISON: 09/07/2023. TECHNIQUE: Transaxial computed tomographic images of the abdomen and pelvis were obtained after the administration of 90 mL of Optiray 350 intravenously. Multiplanar coronal and oblique images were reformatted. Noncontrast images were obtained from the aortic arch through the pelvis. Postcontrast arterial phase images were obtained from the aortic arch to the pelvis. 3D images were prepared on a separate workstation as part of this examination. FINDINGS: VASCULAR: There is an infrarenal abdominal aortic aneurysm measuring 5.1 x 4.8 cm with curvilinear eccentric soft plaque anteriorly, unchanged from prior. No significant change in shape and configuration of the aneurysm. There is similar moderate stenosis of the mid celiac artery, series 8 image 118. No significant flow-limiting stenosis in the superior mesenteric artery. No significant renal artery stenosis. Inferior mesenteric artery is patent. Similar small eccentric aneurysm of the infrarenal abdominal aorta measuring 0.8 x 0.7 cm with chronic thrombosis, unchanged from prior, series 8 image 178. No significant flow-limiting stenosis in the common iliac, external iliac, and internal iliac arteries bilaterally. Other structures: Similar diffuse interlobular septal thickening in the bilateral lung bases suggestive of nonspecific interstitial pneumonia pattern. No appreciable change from prior. Small hiatal hernia. Small calcified granulomas in the spleen. Visualized portions of the liver, gallbladder, and pancreas are unremarkable. Adrenal glands are normal. Lobular contour of both kidneys. Simple cysts in the left kidney. There is diverticulosis. No evidence of diverticulitis. Partial small bowel resection. No pathologic by size criteria lymphadenopathy. No acute osseous abnormality. Multilevel intervertebral disc disease appears most significant from L2-L3 through L4-L5. No significant change in appearance of the bladder with similar right natalee-bladder diverticulum. Cannot exclude potential fistulous tract between the bladder and small bowel, series 5 image 159. IMPRESSION: 1. No new findings. 2. Stable size of infrarenal abdominal aortic aneurysm. 3. Similar common hepatic artery aneurysm. 4. 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 5. Similar right natalee-bladder diverticulum abutting adjacent small bowel. Cannot exclude fistulous tract versus potential scarring given continued close proximity with the small bowel. May consider CT cystogram if clinical concern for fistula. 6. Chronic findings as above. Electronically signed by: Miguel Ángel Contreras II, D.O. us Tomas Dunham MD IMG CT PROCEDURES Final Resu lt * (ABNORMAL) POCT creatinine for contrast evaluation (09/08/2024 9:20 AM CDT) Creatinine, POC 1.6(A) 0.6 - 1.3 mg/dL Blood 09/08/2024 9:20 AM CDT us Tomas Dunham MD POINT OF CARE TEST ORDERABLE S Final Result * COLONOSCOPY (08/12/2018 12:08 PM CDT) Anatomical Region Laterality Modality Other Narrative Procedure Note Jann Squires MD - 08/12/2018 12:08 PM CDT [facility] Patient Name: Kadeem Sinha Procedure Date: 08/12/2018 12:08 PM Date of : 1945 Admit Type: Inpatient Age: 73 Gender: Male Note Status: Finalized Attending MD: Jann Squires M.D. Procedure Date: 08/12/2018 Procedure: Colonoscopy Indications: Hematochezia Providers: Jann Squires M.D., HEATHER Melgar (Anesthesia Staff), Alejandra Baez RN Referring MD: Cari Lawrence M.D. Medicines: Monitored Anesthesia Care Complications: No immediate complications. Estimated Blood Loss: Estimated blood loss: none. Procedure: Pre-Anesthesia Assessment: - Airway Examination: normal oropharyngeal airwayand neck mobility. - Respiratory Examination: clear to auscultation. - ASA Grade Assessment: III - A patient with severe systemic disease. - After reviewing the risks and benefits, thepatient was deemed in satisfactory condition to undergo the procedure. - The risks and benefits of the procedure and the sedation options and risks were discussed with the patient. All questions were answered and informed consent was obtained. After I obtained informed consent, the scope waspassed under direct vision. Throughout the procedure, the patient's blood pressure, pulse, and oxygensaturations were monitored continuously. The scope was passedunder direct vision. The Colonoscope was introducedthrough the anus and advanced to the the cecum, identifiedby the appendiceal orifice, ileocecal valve andpalpation. The colonoscopy was performed with ease. The patient tolerated the procedure well. The quality of thebowel preparation was evaluated using the BBPS (BostonBowel Preparation Scale) with scores of: Right Colon = 2 (minor amount of residual staining, small fragmentsof stool and/or opaque liquid, but mucosa seen well), Transverse Colon = 2 (minor amount of residual staining, small fragments of stool and/or opaque liquid, but mucosa seen well) and Left Colon = 2(minor amount of residual staining, small fragments ofstool and/or opaque liquid, but mucosa seen well). Thetotal BBPS score equals 6. The quality of the bowel preparation was good. The bowel preparation used was SUPREP. Findings: The perianal exam findings include anal fissure and skin tags. A few medium-mouthed diverticula were found in the sigmoid colon. Internal hemorrhoids were found during retroflexion. The hemorrhoids were moderate. Impression: - Anal fissure and perianal skin tags found onperianal exam. - Diverticulosis in the sigmoid colon. - Internal hemorrhoids. - No specimens collected. Recommendation: - Repeat colonoscopy is not recommended. - [facility] - Use Analpram HC Cream 2.5%: Apply externally daily for 2 weeks. - Use original regular Metamucil one teaspoon POBID. Procedure Code(s): --- Professional --- 23358, Colonoscopy, flexible; diagnostic, including collection of specimen(s) by brushing or washing,when performed (separate procedure) Diagnosis Code(s): --- Professional --- K64.8, Other hemorrhoids K60.2, Anal fissure, unspecified K64.4, Residual hemorrhoidal skin tags K92.1, Melena (includes Hematochezia) K57.30, Diverticulosis of large intestine without perforation or abscess without bleeding CPT copyright 2017 [employer]. All rights reserved. The codes documented in this report are preliminary and upon braille coder reviewmay be revised to meet current compliance requirements. Electronically signed by Jann Squires MD Jann Squires M.D. 08/12/2018 12:39:16 PM Number of Addenda: 0 Note Initiated On: 08/12/2018 12:08 PM us Jann Squires MD ENDOSCOPY PROCEDURES Final Resul t * Hepatitis C antibody (11/17/2015 8:54 AM CDT) SIGNAL TO CUT-OFF 0.01 <1.00 [facility] Comment: REPORT COMMENT: FASTING:NO Test performed at [facility] [place] [address] [place] [address] Director: PATTIE SOLOMON DO,MPH Hep C Ab NON-REACT SARA NON-REACT SARA [facility] 11/17/2015 8:54 AM CDT Cari Lawrence MD LAB MICROBIOLOGY - GENERAL ORDERABLES Final Result [facility] from Last 3 Months or Most Recently Relevant to Health Maintenance Insurance COMMERCIAL GENERIC MEDICARE MEDICARE [facility] MEDICARE [facility] MEDICARE [facility] MEDICARE SUPPLEMENT Advance Directives For more information, please contact: [phone] Documents on File Type Date Recorded Patient Assistant Store Leader Expl anation ADVANCE DIRECTIVE 01/01/2023 POWER OF A TTORNEY-MEDICAL ADVANCE DIRECTIVE 07/16/2018 2:07 PM DNR ADVANCE DIRECTIVE 10/27/2010 POWER OF A TTORNEY-MEDICAL ADVANCE DIRECTIVE 11/30/2004 POWER OF A TTORNEY-MEDICAL * Full Code (Latest Code Status on File) Date Activated Date Inactivated Comments 12/18/2022 3:44 PM 12/23/2022 5:55 PM * Full Code Date Activated Date Inactivated Comments 08/10/2018 8:13 PM 08/12/2018 9:52 PM Care Teams Value Stream Manager Relationship Specialty Start Date End Date Cari Lawrence MD PCP - General 05/26/16 Iván Jim MD [address] [place] [address] Referring Physician Orthopedic Surgery 09/06/22 Celi Graves MD [address] [facility] [address] [place] [address] Consulting Physician Gastroenterology 12/25/22 Juan Mars MD [address] [facility] [address] [place] [address] Consulting Physician Urology 01/30/23 Otonile Jenkins MD [address] [place] [address] [address] [place] [address] Consulting Physician Nephrology 05/28/23 Curtis Ca MD [address] [place] [address] [address] [place] [address] Consulting Physician Neurology 05/28/23 Chava Jones MD [address] [place] [address] [address] [place] [address] Consulting Physician Plastic Surgery 05/28/23 Wili Hernandez MD [address] [place] [address] [address] [place] [address] Consulting Physician Cardiovascular Disease 05/27/22 Jory Diego, RY [address] [place] [address] [address] [place] [address] Nurse Practitioner Family Medicine 07/30/23 Mitch Juan MD [address] [place] [address] DR DUSTIN Gregorio [facility] [address] [place] [address] Surgeon Orthopedic Surgery 09/27/23 Tiburcio Sarabia MD [address] [place] [address] DR DUSTIN Gregorio [facility] [address] [place] [address] Dermatology 09/27/23 Michelle Shi, AUREA [address] [place] [address] [place] [address] Optometry 06/09/24 Tomas Dunham MD [address] [place] [address] Consulting Physician Vascular Surgery 09/08/24
--- OUTSIDE RECORDS SUMMARY | 2024-10-29 13:23 | XMS_ITS | Clinical Summary ---
Author Organization [facility] Facility Address [address] [address] Care Team Providers Care Gasoline Engine Inspector Name Role Phone Cari Lawrence MD Primary Care Provider [phone] Allergies Active Allergy Reactions Criticality Noted Date Comments Naproxen Hives Medium 04/20/2023 Medications aspirin (ST CAROL) 81 MG EC tablet Take 81 mg by mouth 1 (one) time each day Active carbidopa-levodo pa (SINEMET) 25-100 MG per tablet Take 2 tablets by mouth in the morning and 2 tablets in the evening and 2 tablets before bedtime. 01/31/20 23 Active donepezil (ARICEPT) 10 MG tablet Take 10 mg by mouth every night 01/31/20 23 Active flecainide (TAMBOCOR) 50 MG tablet Take 50 mg by mouth in the morning and 50 mg in the evening. 01/05/20 23 Active fluticasone (FLONASE) 50 MCG/ACT nasal spray Administer 2 sprays into each nostril 1 (one) time each day 01/31/20 23 Active ipratropium (ATROVENT) 0.03 % nasal spray Administer 2 sprays into each nostril in the morning and 2 sprays in the evening. 01/31/20 23 Active propranolol (INDERAL) 40 MG tablet Take 20 mg by mouth in the morning and 20 mg in the evening. 08/08/19 23 Active traMADol (ULTRAM) 50 MG tablet Take 50 mg by mouth at night if needed for moderate pain or severe pain 12/24/19 23 Active traZODone (DESYREL) 50 MG tablet Take 50 mg by mouth at night if needed for sleep 07/21/19 23 Active cholecalciferol (D3 High Potency) 25 MCG (1000 UT) capsule Take 1,000 Units by mouth 1 (one) time each day Active cyanocobalamin (VITAMIN B-12) 1000 MCG tablet Take 1,000 mcg by mouth 1 (one) time each day Active acetaminophen (TYLENOL 8 HOUR) 650 MG 8 hr tablet Take 650 mg by mouth every 8 (eight) hours if needed for mild pain Do not crush, chew, or split. Active Melatonin 5 MG tablet Take 5 mg by mouth at bed time Active rosuvastatin (CRESTOR) 20 MG tablet Take 20 mg by mouth 1 (one) time each day Active tiZANidine (ZANAFLEX) 2 MG tablet Take 2 mg by mouth if needed 09/27/19 24 Active triamcinolone (KENALOG) 0.1 % cream APPLY TWICE DAILY TO RASH UP TO 2 WEEK AT A TIME. TAKE A BREAK FOR ONE TO TWO DAYS AND RESUME NEEDED. USE FOR MILD FLARING. Active carbidopa-levodo pa CR (SINEMET CR) 50-200 MG per CR tablet Take 1 tablet by mouth every night Active Dupixent 300 MG/2ML solution auto-injector 02/11/20 24 Active Sodium Zirconium Cyclosilicate (Lokelma) 10 g pack Take 10 g by mouth 1 (one) time each day if needed (once today only) Active ferrous sulfate (Fe Tabs) 325 (65 Fe) MG EC tablet Take 1 tablet (325 mg total) by mouth 1 (one) time each day with breakfast Do not crush, chew, or split. 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 Still having aching pain worse in the morning. No acute exam findings. Likely arthritis. Continue Ibuprofen/Tylenol as needed. Heat/ice as tolerated. Gentle ROM activities encouraged. Dupuytren's contracture of finger 04/28/2019 Stage 3b chronic kidney disease 08/10/2018 Overview (04/20/2023): (-) cardiac workup 2014 PROCEDURE: The patient [...] CHEST OR DIAGNOSTIC EKG CHANGES. Dr. Hernandez Last Assessment & Plan: BP stable in office today on current therapy. See recent hospitalization for SVT as noted above. Serial EKGs were all sinus/sinus tach- no atrial ectopy. Repeat ECHO was unremarkable. No acute findings on exam. Continue current regimen and low salt diet. Keep follow with cardiology in 3 weeks. H/O: malignant neoplasm 08/10/2018 Overview (04/20/2023): Hx of bladder cancer status post cystectomy with ileal conduit by Dr. Louis tumor free since surgery Last Assessment & Plan: Pt reports that Dr. Aguirre did a cystoscopy and he reported that there were no abnormal findings to explain the abnormal cells in his urine. Chronic rhinitis 12/10/2016 Gastroesophageal reflux disease 12/10/2016 Overview (04/20/2023): Last Assessment & Plan: Pt states his symptoms are managed with his prilosec--he will continue on this. Rheumatoid arthritis of multiple joints 08/11/19 16 Overview (04/20/2023): Last Assessment & Plan: Chronic issue, was switched from leflunimide to [...] Will REFER To rheumatology for further assessment. Chronic obstructive asthma, unspecified 07/13/19 14 Overview (04/20/2023): COPD (chronic obstructive pulmonary disease) Chronic pain syndrome 07/12/2013 Overview (04/20/2023): Chronic low back pain Mixed hyperlipidemia 07/12/2013 Overview (04/20/2023): Hyperlipidemia Abdominal aortic aneurysm without rupture 2012 Overview (04/20/2023): CT abdomen 12/18/22 1. Redemonstrated postoperative changes [...] CT every other year with Dr. Louis Last Assessment & Plan: CT chest/abdomen/pelvis performed while in hospital for SVT showed AAA had grown to approx 5 cm. No acute findings on exam, no tenderness or bruit. Has follow with cardiology in 3 weeks. H&H had improved to 8.0/24 upon discharge. BP stable. Continue current regimen. Encounters Date Type Department Care Team Description 10/01/2024 10:30 AM CDT [facility] [address] [place] [address] Mauricio Degroot MD Chronic kidney disease stage 3B (HCC) (Primary Dx) 10/01/2024 Office Communication [place] [facility] [address] [place] [address] Fanny Gonzalez MA from Last 3 Months Immunizations Immunization Administration Dates Next Due Influenza Split 01/01/2013 Influenza Split High Dose Preservative Free IM 1 ,12/28/2017 Influenza Vaccine, Quadrivalent, Adjuvanted 10/28 Influenza, Quadrivalent, With Preservative 12/18,01/04/2016 Influenza, Unspecified 01/16/2021,11/21/2019 Pfizer SARS-COV-2 05/07/2020,04/16/2020 Pneumococcal Conjugate 13-Valent 11/20/2014 Pneumococcal Polysaccharide 01/04/2016, 1 Shingrix 03/26/2019,01/25/2019 TD Preservative Free 12/26/2002 Tdap 11/24/2011 Zoster 01/22/2015,12/07/2013 Family History Medical History Relation Comments Heart disease Father Diabetes Mother Relation Status Comments Father Mother Social History Tobacco Use Types Packs/Day Years Used Date Smoking Tobacco: Former Cigarettes Smokeless Tobacco: Never Tobacco Cessation:Counseling Given: Not Answered Alcohol Use Standard Drinks/Week Comments Yes 0 (1 standard drink = 0.6 oz pur e alcohol) Sex and Gender Information Value Date Recorded Sex Assigned at Not on file Legal Sex Male 1:39 PM EST Gender Identity Not on file Sexual Orientation Not on file Last Filed Vital Signs Vital Sign Reading Time Taken Comments Blood Pressure 105/60 10/01/2024 10:32 AM CDT Pulse 56 10/01/2024 10:32 AM CDT Temperature 35 C (95 F) 10/01/2024 10:32 AM CDT Respiratory Rate 16 10/01/2024 10:32 AM CDT Oxygen Saturation 97% 10/01/2024 10:32 AM CDT Inhaled Oxygen Concentration - - Weight 84.8 kg (187 lb) 10/01/2024 10:32 AM CDT Height 175.3 cm (5' 9) 09/21/2023 11:07 AM CDT Body Mass Index 27.62 09/21/2023 11:07 AM CDT Plan of Treatment Upcoming Encounters Date Type Department Care Team (Late st Contact Info) Description 04/03/2025 10:30 AM LEASE OPERATOR Office Visit [facility], [facility] [address] [facility] [address] [place] [address] Mauricio Degroot MD [address] [facility] [address] [place] [address] Health Maintenance Due Date Last Done Comments Influenza Vaccine (#1) 2024 4, 01/16/2021, 11/21/2019, Additional history exists Pneumococcal Vaccine: 50+ Years Completed 01/04/2016, 11/20/2014, 11/25/2010 Hepatitis B Vaccine Aged Out No longe r eligible based on patient's age to complete this topic Insurance Medicare [facility] Care Teams Gasoline Engine Inspector Relationship Specialty Start Date End Date Cari Lawrence MD [address] [place] [id number] PCP - General Geriatric Medicine 03/14/23
--- OUTSIDE RECORDS SUMMARY | 2024-10-29 13:23 | XMS_ITS | Encounter Summary ---
Author Organization [facility] Address [address] [place] [address] Phone Care Team Providers Care Driver Helper Name Role Phone Cari Lawrence MD Primary Care Provider + [phone] Miguel Ángel Rodas MD Unavailable +[phone] David Jeffrey MD Unavailable +[phone] Giovanny HERRERA MD, Darryl Grullon Unavailable + [phone] Mukesh Aguirre MD Unavailable +[phone] Kevin Mcdermott LCSW Unavailable [facility] Iván Jim MD Unavailable +[phone] Harrison Smith MD Unavailable [phone] Celi Graves MD Unavailable Juan Mars MD Unavailable + [phone] Mauricio Degroot MD Unavailable +[phone] Curtis Ca MD Unavailable +[phone] Chava Jones MD Unavailable + [phone] Wili Hernandez MD Unavailable [phone] Jory Diego NP Unavailable +[phone] Raiza ClarkGenie BAND BOOKER Unavailable Mitch Juan MD Unavailable Tiburcio Sarabia MD Unavailable [phone] Michelle Shi OD Unavailable Tomas Dunham MD Unavailable Encounter Details Date Type Department Care Team (Late st Contact Info) Description 03/15/2020 Orders Only [facility] [address] [place] [address] Scanning, Provider Social History Tobacco Use Types Packs/Day Years Used Date Smoking Tobacco: Former Smokeless Tobacco: Never Alcohol Use Standard Drinks/Week Comments Yes 21 (1 standard drink = 0.6 oz pu re alcohol) Social Connection and Isolation Panel Answer Date Recorded Frequency of Communication with Friends and Fami ly Not on file 03/12/2020 Frequency of Social Gatherings with Friends and Family Not on file 03/12/2020 Attends Sikhism Services Not on file 03/12 Do you belong to any clubs o r organizations such as mormon groups, unions, fraternal or athletic groups, or school groups? No 03/12/2020 How often do you attend meet ings of the clubs or organizations you belong to? Never 03/12/2020 Are you , , di vorced, , never , or living with a partner? 03/12/2020 Overall Financial Resource Strain (CARDIA) Answe r Date Recorded How hard is it for you to pa y for the very basics like food, housing, medical care, and heating? Not hard at all 03/12/2020 PHQ-2 Answer Date Recorded PHQ-2 Total Score (If total score is 3 or more points, staff should administer the PHQ-9) 1 12/29/2019 Hunger Vital Sign Answer Date Recorded Within the past 12 months, y ou worried that your food would run out before you got the money to buy more. Never true 03/12/19 21 Within the past 12 months, t he food you bought just didn't last and you didn't have money to get more. Never true 03/12/2020 PRAPARE - Transportation Answer Date Re corded In the past 12 months, has l ack of transportation kept you from medical appointments or from getting medications? No 02/26 In the past 12 months, has l ack of transportation kept you from meetings, work, or from getting things needed for daily living? No 03/12/2020 Sex and Gender Information Value Date Recorded Sex Assigned at Not on file Legal Sex Male 3:43 PM FINANCIAL LEGAL ASSISTANT Gender Identity Male 03/09/2022 10:24 AM FINANCIAL LEGAL ASSISTANT Sexual Orientation Not on file Occupation Industry Job Start Date Job End Date retired Not on file Not on file Not on file documented as of this encounter Plan of Treatment Not on file documented as of this encounter Procedures Procedure Name Priority Date/Time Associated Diagnosis Comments SCAN - LABS 03/15/2020 documented in this encounter Results * SCAN - LABS (03/15/2020) us Provider Scanning Edited Result - Final documented in this encounter Visit Diagnoses Not on filedocumented in this encounter Additional Health Concerns Infection Onset Date Last Indicated Resolved Time COVID: Suspected 01/18/2021 01/18/2021 01/18/2021 2:15 PM FINANCIAL LEGAL ASSISTANT documented as of this encounter Care Teams Driver Helper Relationship Specialty Start Date End Date Cari Lawrence MD PCP - General 05/26/16 Miguel Ángel Rodas MD [address] [place] [address] [place] [address] Consulting Physician Internal Medicine 12/18/16 4 David Jeffrey MD [address] [place] [address] [place] [address] Referring Physician Ophthalmology 07/16/18 05/27/23 Darryl Baltazar III, MD [address] [place] [address] [place] [address] Surgeon Plastic Surgery 04/23/19 05/27/23 Mukesh Aguirre MD [address] [place] [address] [id number] Consulting Physician Urology 06/17/19 05/24/23 Kevin Mcdermott LCSW [address] [place] [address] Telephone Assembler 03/12/20 01/31/21 Iván Jim MD [address] [place] [address] Referring Physician Orthopedic Surgery 09/06/22 Harrison Smith MD [address] [place] [address] Consulting Physician Urology 10/25/22 05/27/23 Celi Graves MD [address] [place] [address] [place] [address] Consulting Physician Gastroenterology 12/25/22 Juan Mars MD [address] [place] [address] [place] [address] Consulting Physician Urology 01/30/23 Mauricio Degroot MD [address] [place] [address] [place] [address] Consulting Physician Nephrology 05/28/23 Curtis Ca MD [address] [place] [address] [place] [address] Consulting Physician Neurology 05/28/23 Chava Jones MD [address] [place] [address] [place] [address] Consulting Physician Plastic Surgery 05/28/23 Wili Hernandez MD [address] [place] [address] [place] [address] Consulting Physician Cardiovascular Disease 05/27/22 Jory Diego NP [address] [place] [address] [place] [address] Nurse Practitioner Family Medicine 07/30/23 Raiza Clark, [address] [place] [address] Telephone Assembler 08/10/23 01/14/24 Mitch Juan MD [address] [place] [address] DR DUSTIN Gregorio [address] [address] Surgeon Orthopedic Surgery 09/27/23 Tiburcio Sarabia MD [address] [place] [address] DR DUSTIN Gregorio [address] [address] Dermatology 09/27/23 Michelle Shi OD [address] [place] [address] [place] [address] Optometry 06/09/24 Tomas Dunham MD [address] [place] [address] Consulting Physician Vascular Surgery 09/08/24 documented as of this encounter
--- OUTSIDE RECORDS SUMMARY | 2024-10-29 13:23 | XMS_ITS | Encounter Summary ---
Author Organization [facility] Address [address] [place] [address] Phone Care Team Providers Care Die Polisher Name Role Phone Cari Lawrence MD Primary Care Provider + [phone] Patrice Louis MD Unavailable +[phone] Miguel Ángel Rodas MD Unavailable +[phone] Yahir Clemons MD Unavailable [phone] Brie Lerma Unavailable Unavailable David Jeffrey MD Unavailable +[phone] Diann Wayne RN Unavailable +[phone] Giovanny HERRERA MD, John Matthew Unavailable + [phone] Mukesh Aguirre MD Unavailable +[phone] Kevin Mcdermott LCSW Unavailable UnavailIván Reeder MD Unavailable +[phone] Harrison Smith MD Unavailable [phone] Celi Graves MD Unavailable Juan Mars MD Unavailable + [phone] Mauricio Degroot MD Unavailable +[phone] Curtis Ca MD Unavailable +[phone] Chava Jones MD Unavailable [phone] Wili Hernandez MD Unavailable [phone] Jory Diegoe JUKEBOX OPERATOR Unavailable Raiza ClarkGenie MONITOR AND STORAGE BIN TENDER Unavailable Mitch Juan MD Unavailable Tiburcio Sarabia MD Unavailable Michelle Shi OD Unavailable Tomas Dunham MD Unavailable Encounter Details Date Type Department Care Team (Late st Contact Info) Description 12/13/2016 Orders Only [facility] [address] [place] [id number] Cari Lawrence MD [address] [place], [place] [id number] Social History Tobacco Use Types Packs/Day Years Used Date Smoking Tobacco: Never Assessed Sex and Gender Information Value Date Recorded Sex Assigned at Not on file Legal Sex Male 3:43 PM OVERNIGHT ASSOCIATE Gender Identity Male 03/09/2022 10:24 AM OVERNIGHT ASSOCIATE Sexual Orientation Not on file documented as of this encounter Plan of Treatment Not on file documented as of this encounter Procedures Procedure Name Priority Date/Time Associated Diagnosis Comments SCAN - LABS 12/13/2016 2:15 PM CDT documented in this encounter Results * SCAN - LABS (12/13/2016 2:15 PM CDT) Cari Lawrence MD Final Resu lt documented in this encounter Visit Diagnoses Not on filedocumented in this encounter Additional Health Concerns Infection Onset Date Last Indicated Resolved Time COVID19 05/26/2019 05/26/2019 07/23/2019 3:06 AM CDT COVID: Suspected 01/18/2021 01/18/2021 01/18/2021 2:15 PM OVERNIGHT ASSOCIATE documented as of this encounter Care Teams Die Polisher Relationship Specialty Start Date End Date Cari Lawrence MD PCP - General 05/26/16 [place] [address] [address] Consulting Physician Urology 12/18/16 03/02/20 Miguel Ángel Rodas MD [address] [facility] [address] FREEMAN [place] [address] Consulting Physician Internal Medicine 12/18/16 Yahir Clemons MD [address] [facility] [place] [address] Consulting Physician Ophthalmology 12/18/16 07/15/18 Brie Lerma [address] [facility] [address] FREEMAN [place] [address] Consulting Physician Ophthalmology 06/20/17 07/15/18 David Jeffrey MD [address] [place] [address] DR FREEMAN [place] [address] Referring Physician Ophthalmology 07/16/18 05/27/23 Diann Wayne, MANUEL [address] [place] [address] DR FREEMAN [place] [address] Wafer Abrading Machine Tender 08/13/18 10/01/18 Darryl Baltazar III, MD [address] [place] [address] [place] [address] Surgeon Plastic Surgery 04/23/19 05/27/23 Mukesh Aguirre MD [address] [address] Consulting Physician Urology 06/17/19 05/24/23 Sharron Kevin, MONITOR AND STORAGE BIN TENDER [address] [place] [address] Director Money 03/12/20 01/31/21 Iván Jim MD [address] [place] [address] Referring Physician Orthopedic Surgery 09/06/22 Harrison Smith MD [address] [place] [address] Consulting Physician Urology 10/25/22 05/27/23 Celi Graves MD [address] [place] [address] [address] [place] [address] Consulting Physician Gastroenterology 12/25/22 Juan Mars MD [address] [place] [address] [place] [address] Consulting Physician Urology 01/30/23 Mauricio Degroot MD [address] [place] [address] [place] [address] Consulting Physician Nephrology 05/28/23 Curtis Ca MD [address] [place] [address] [address] [place] [address] Consulting Physician Neurology 05/28/23 Chava Jones MD [address] [place] [address] [address] [place] [address] Consulting Physician Plastic Surgery 05/28/23 Wili Hernandez MD [address] [place] [address] [place] [address] Consulting Physician Cardiovascular Disease 05/27/22 Jory Diego NP [address] [place] [address] [address] [place] [address] Nurse Practitioner Family Medicine 07/30/23 Raiza Clark, [facility] [address] [facility] [address] [place] [address] Director Money 08/10/23 01/14/24 Mitch Juan MD [address] [place] [address] DR DUSTIN Gregorio [facility] [address] [place] [address] Surgeon Orthopedic Surgery 09/27/23 Tiburcio Sarabia MD [address] [place] [address] DR DUSTIN Gregorio [facility] [address] [place] [address] Dermatology 09/27/23 Michelle Shi, AUREA [address] [place] [address] [place] [address] Optometry 06/09/24 Tomas Dunham MD [address] [place] [address] Consulting Physician Vascular Surgery 09/08/24 documented as of this encounter
--- OUTSIDE RECORDS SUMMARY | 2024-10-29 13:23 | XMS_ITS | Encounter Summary ---
Author Organization [place] [facility] Address [address] [place] [address] Phone Care Team Providers Care Real Estate Director Name Role Phone Cari Lawrence MD Primary Care Provider + [phone] Patrice Louis MD Unavailable +[phone] Miguel Ángel Rodas MD Unavailable +[phone] Yahir Clemons MD Unavailable +[phone] Brie Lerma Unavailable Unavailable David Jeffrey MD Unavailable +[phone] Diann Wayne RN Unavailable +[phone] Giovanny HERRERA MD, John Matthew Unavailable + [phone] Mukesh Aguirre MD Unavailable +[phone] Kevin Mcdermott LCSW Unavailable UnavailIván Reeder MD Unavailable +[phone] Harrison Smith MD Unavailable [phone] Celi Graves MD Unavailable Juan Mars MD Unavailable + [phone] Mauricio Degroot MD Unavailable +[phone] Curtis Ca MD Unavailable +[phone] Chava Jones MD Unavailable [phone] Wili Hernandez MD Unavailable [phone] [employer] Justina IT HELP DESK TECHNICIAN Unavailable Eduardo Raiza BeeGenie CHAIRMAN CEO Unavailable Mitch Juan MD Unavailable Tiburcio Sarabia MD Unavailable Michelle Shi OD Unavailable [phone] Tomas Dunham MD Unavailable Encounter Details Date Type Department Care Team (Late st Contact Info) Description 09/29/2016 Orders Only [facility] [address] [place] [address] Cari Lawrence MD [address] [place] [address] 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) Social History Tobacco Use Types Packs/Day Years Used Date Smoking Tobacco: Never Assessed Sex and Gender Information Value Date Recorded Sex Assigned at Not on file Legal Sex Male 3:43 PM FRYER OPERATOR Gender Identity Male 03/09/2022 10:24 AM FRYER OPERATOR Sexual Orientation Not on file documented as of this encounter Plan of Treatment Scheduled Orders Name Type Priority Associated Diagnoses Orde r Schedule CBC with auto differential Lab Routine 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) Expected: 11/29/2016, Expires: 09/29/2017 Comprehensive metabolic panel Lab Routine 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) Expected: 11/29/2016, Expires: 09/29/2017 Cholesterol, LDL, direct Lab Routine 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) Expected: 11/29/2016, Expires: 09/29/2017 documented as of this encounter Visit Diagnoses Diagnosis 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)- Primary Rheumatoid arthritis documented in this encounter Additional Health Concerns Infection Onset Date Last Indicated Resolved Time COVID19 05/26/2019 05/26/2019 07/23/2019 3:06 AM CDT COVID: Suspected 01/18/2021 01/18/2021 01/18/2021 2:15 PM FRYER OPERATOR documented as of this encounter Care Teams Real Estate Director Relationship Specialty Start Date End Date Cari Lawrence MD PCP - General 05/26/16 [place] [address] [address] Consulting Physician Urology 12/18/16 03/02/20 Miguel Ángel Rodas MD [address] [facility] [place] [address] Consulting Physician Internal Medicine 12/18/16 Yahir Clemons MD [address] [place] [address] [place] [address] Consulting Physician Ophthalmology 12/18/16 07/15/18 Brie Lerma [address] [facility] [place] [address] Consulting Physician Ophthalmology 06/20/17 07/15/18 David Jeffrey MD [address] [facility] [place] [address] Referring Physician Ophthalmology 07/16/18 05/27/23 Diann Wayne, MANUEL [address] [facility] [place] [address] Senior Air Director 08/13/18 10/01/18 Darryl Baltazar III, MD [address] [facility] [place] [address] Surgeon Plastic Surgery 04/23/19 05/27/23 Mukesh Agiurre MD [address] [place] [address] Consulting Physician Urology 06/17/19 05/24/23 Kevin Mcdermott LCSW [address] [place] [address] Serologist 03/12/20 01/31/21 Iván Jim MD [address] [place] [address] Referring Physician Orthopedic Surgery 09/06/22 Harrison Smith MD [address] [place] [address] Consulting Physician Urology 10/25/22 05/27/23 Celi Graves MD [address] [place] [address] [address] [place] 7359802 Consulting Physician Gastroenterology 12/25/22 Juan Mars MD [address] [place] [address] [place] [address] Consulting Physician Urology 01/30/23 Mauricio Degroot MD [address] [place] [address] [place] [address] Consulting Physician Nephrology 05/28/23 Curtis Ca MD [address] [place] [address] [place] [address] Consulting Physician Neurology 05/28/23 Chava Jones MD [address] [place] [address] [place] [address] Consulting Physician Plastic Surgery 05/28/23 Wili Hernandez MD [address] [facility] [address] [place] [address] Consulting Physician Cardiovascular Disease 05/27/22 Jory Diego, RY [address] [facility] [address] [place] [address] Nurse Practitioner Family Medicine 07/30/23 Raiza Clark, [address] [place] [address] Serologist 08/10/23 01/14/24 Mitch Juan MD [address] [facility] [address] DUSTIN Gregorio [address] [place] [address] Surgeon Orthopedic Surgery 09/27/23 Tiburcio Sarabia MD [address] [facility] [address] [place] [address] Dermatology 09/27/23 Michelle Shi OD [address] [place] [address] [place] [address] Optometry 06/09/24 Tomas Dunham MD [address] [place] [address] Consulting Physician Vascular Surgery 09/08/24 documented as of this encounter
--- OUTSIDE RECORDS SUMMARY | 2024-10-29 13:23 | XMS_ITS | Encounter Summary ---
Author Organization [facility] Address [address] [place] [address] Phone Care Team Providers Care Fretted String Instrument Repairer Name Role Phone Cari Lawrence MD Primary Care Provider + [phone] Patrice Louis MD Unavailable +[phone] Miguel Ángel Rodas MD Unavailable +[phone] Yahir Clemons MD Unavailable +[phone] Brie Lerma Unavailable Unavailable David Jeffrey MD Unavailable +[phone] Diann Wayne RN Unavailable +[phone] Giovanny HERRERA MD, John Matthew Unavailable + [phone] Mukesh Aguirre MD Unavailable +[phone] Kevin Mcdermott LCSW Unavailable UnavailIván Reeder MD Unavailable +[phone] Harrison Smith MD Unavailable [phone] Celi Graves MD Unavailable Juan Mars MD Unavailable + [phone] Mauricio Degroot MD Unavailable +[phone] Curtis Ca MD Unavailable +[phone] Chava Jones MD Unavailable [phone] Wili Hernandez MD Unavailable [phone] Jory Diego EPIC ANALYST Unavailable Raiza ClarkGenie STENOGRAPHIC COURT REPORTER Unavailable [phone] Mitch Juan MD Unavailable Tiburcio Sarabia MD Unavailable Michelle Shi OD Unavailable Tomas Dunham MD Unavailable Encounter Details Date Type Department Care Team (Late st Contact Info) Description 05/29/2017 Orders Only [facility] [address] [place] [address] Cari Lawrence MD [address] [place] [address] Social History Tobacco Use Types Packs/Day Years Used Date Smoking Tobacco: Former Smokeless Tobacco: Never Alcohol Use Standard Drinks/Week Comments Yes 21 (1 standard drink = 0.6 oz pu re alcohol) Sex and Gender Information Value Date Recorded Sex Assigned at Not on file Legal Sex Male 3:43 PM RN PLASTIC SURGERY Gender Identity Male 03/09/2022 10:24 AM RN PLASTIC SURGERY Sexual Orientation Not on file documented as of this encounter Plan of Treatment Not on file documented as of this encounter Procedures Procedure Name Priority Date/Time Associated Diagnosis Comments SCAN - LABS 05/29/2017 3:54 PM CDT documented in this encounter Results * SCAN - LABS (05/29/2017 3:54 PM CDT) us Cari Lawrence MD Edited Res ult - Final documented in this encounter Visit Diagnoses Not on filedocumented in this encounter Additional Health Concerns Infection Onset Date Last Indicated Resolved Time COVID19 05/26/2019 05/26/2019 07/23/2019 3:06 AM CDT COVID: Suspected 01/18/2021 01/18/2021 01/18/2021 2:15 PM RN PLASTIC SURGERY documented as of this encounter Care Teams Fretted String Instrument Repairer Relationship Specialty Start Date End Date Cari Lawrence MD PCP - General 05/26/16 [place] [address] [address] Consulting Physician Urology 12/18/16 03/02/20 Miguel Ángel Rodas MD [address] [facility] [place] [address] Consulting Physician Internal Medicine 12/18/16 Yahir Clemons MD [address] [place] [address] [place] [address] Consulting Physician Ophthalmology 12/18/16 07/15/18 Brie Lerma [address] [place] [address] [place] [address] Consulting Physician Ophthalmology 06/20/17 07/15/18 David Jeffrey MD [address] [facility] [place] [address] Referring Physician Ophthalmology 07/16/18 05/27/23 Diann Wayne, MANUEL [address] [facility] [place] [address] Rod Cup Filler 08/13/18 10/01/18 Darryl Baltazar III, MD [address] [facility] [place] [address] Surgeon Plastic Surgery 04/23/19 05/27/23 Mukesh Aguirre MD [address] [place] [address] Consulting Physician Urology 06/17/19 05/24/23 Kevin Mcdermott LCSW [address] [place] [address] Director Of Industrial Relations 03/12/20 01/31/21 Iván Jim MD [address] [place] [address] Referring Physician Orthopedic Surgery 09/06/22 Harrison Smith MD [address] [place] [address] Consulting Physician Urology 10/25/22 05/27/23 Celi Graves MD [address] [place] [address] [address] [place] [id number] Consulting Physician Gastroenterology 12/25/22 Juan Mars MD [address] [place] [address] [place] [address] Consulting Physician Urology 01/30/23 Mauricio Degroot MD [address] [place] [address] [place] [address] Consulting Physician Nephrology 05/28/23 Curtis Ca MD [address] [place] [address] [place] [address] Consulting Physician Neurology 05/28/23 Chava Jones MD [address] [place] [address] [place] [address] Consulting Physician Plastic Surgery 05/28/23 Wili Hernandez MD [address] [facility] [address] [place] [address] Consulting Physician Cardiovascular Disease 05/27/22 Jory Diego NP [address] [facility] [address] [place] [address] Nurse Practitioner Family Medicine 07/30/23 Raiza Clark, [facility] [address] [facility] [place] [address] Director Of Industrial Relations 08/10/23 01/14/24 Mitch Juan MD [address] [facility] [address] DUSTIN Gregorio [facility] [address] [place] [address] Surgeon Orthopedic Surgery 09/27/23 Tiburcio Sarabia MD [address] [facility] [address] [place] [address] Dermatology 09/27/23 Michelle Shi OD [address] [place] [address] [place] [address] Optometry 06/09/24 Tomas Dunham MD [address] [place] [address] Consulting Physician Vascular Surgery 09/08/24 documented as of this encounter
--- OUTSIDE RECORDS SUMMARY | 2024-10-29 13:23 | XMS_ITS | Encounter Summary ---
Author Organization [place] [employer] [facility] Address [address] [place] [address] Phone Care Team Providers Care Cloth Feeder Name Role Phone Cari Lawrence MD Primary Care Provider + [phone] Patrice Louis MD Unavailable +[phone] Miguel Ángel Rodas MD Unavailable +[phone] David Jeffrey MD Unavailable +[phone] Giovanny HERRERA MD, Darryl Grullon Unavailable + [phone] Mukesh Aguirre MD Unavailable +[phone] Kevin Mcdermott LCSW Unavailable [facility] Iván Abdi MD Unavailable +[phone] Harrison Smith MD Unavailable Celi Graves MD Unavailable Juan Mars MD Unavailable + [phone] Mauricio Degroot MD Unavailable +[phone] Curtis Ca MD Unavailable +[phone] Chava Jones MD Unavailable + [phone] Wili Hernandez MD Unavailable [phone] Jory Diego NP Unavailable ClarkRaiza HEMP FIBER TAKER OFF Unavailable [phone] Mitch Juan MD Unavailable Tiburcio Sarabia MD Unavailable Michelle Shi OD Unavailable Tomas Dunham MD Unavailable Encounter Details Date Type Department Care Team (Late st Contact Info) Description 01/15/2020 Orders Only [facility] [address] [place] [address] Scanning, Provider Social History Tobacco Use Types Packs/Day Years Used Date Smoking Tobacco: Former Smokeless Tobacco: Never Alcohol Use Standard Drinks/Week Comments Yes 21 (1 standard drink = 0.6 oz pu re alcohol) PHQ-2 Answer Date Recorded PHQ-2 Total Score (If total score is 3 or more points, staff should administer the PHQ-9) 1 12/29/2019 Sex and Gender Information Value Date Recorded Sex Assigned at Not on file Legal Sex Male 3:43 PM MATHEMATICS TECHNICIAN Gender Identity Male 03/09/2022 10:24 AM MATHEMATICS TECHNICIAN Sexual Orientation Not on file Occupation Industry Job Start Date Job End Date retired Not on file Not on file Not on file documented as of this encounter Plan of Treatment Not on file documented as of this encounter Procedures Procedure Name Priority Date/Time Associated Diagnosis Comments SCAN - LABS 01/15/2020 documented in this encounter Results * SCAN - LABS (01/15/2020) us Provider Scanning Final Result documented in this encounter Visit Diagnoses Not on filedocumented in this encounter Additional Health Concerns Infection Onset Date Last Indicated Resolved Time COVID: Suspected 01/18/2021 01/18/2021 01/18/2021 2:15 PM MATHEMATICS TECHNICIAN documented as of this encounter Care Teams Cloth Feeder Relationship Specialty Start Date End Date Cari Lawrence MD PCP - General 05/26/16 [place] [address] [facility] [address] [place] [address] Consulting Physician Urology 12/18/16 03/02/20 Miguel Ángel Rodas MD [address] [facility] [address] [place] [address] Consulting Physician Internal Medicine 12/18/16 David Jeffrey MD [address] [place] [address] [address] [place] [address] Referring Physician Ophthalmology 07/16/18 05/27/23 Darryl Baltazar III, MD [address] [place] [address] [address] [place] [address] Surgeon Plastic Surgery 04/23/19 05/27/23 Mukesh Aguirre MD [address] [place] [address] Consulting Physician Urology 06/17/19 05/24/23 Kevin Mcdermott LCSW [address] [address] Willow Machine Operator 03/12/20 01/31/21 Iván Jim MD [address] [place] [address] Referring Physician Orthopedic Surgery 09/06/22 Harrison Smith MD [address] [place] [address] Consulting Physician Urology 10/25/22 05/27/23 Celi Graves MD [address] [place] [address] [place] [address] Consulting Physician Gastroenterology 12/25/22 Juan Mars MD [address] [place] [address] DR FREEM[address] [place] [address] Consulting Physician Urology 01/30/23 Mauricio Degroot MD [address] [place] [address] DR [address]EM[address] [place] [address] Consulting Physician Nephrology 05/28/23 Curtis Ca MD [address] [place] [address] [address] [place] [address] Consulting Physician Neurology 05/28/23 Chava Jones MD [address] [place] [address] [address] [place] [address] Consulting Physician Plastic Surgery 05/28/23 Wili Hernandez MD [address] [place] [address] [address] [place] [address] Consulting Physician Cardiovascular Disease 05/27/22 Jory Diego NP [address] [place] [address] [address] [place] [address] Nurse Practitioner Family Medicine 07/30/23 Raiza Clark, [facility] [address] [facility] [place] [address] Willow Machine Operator 08/10/23 01/14/24 Mitch Juan MD [address] [place] [address] [address] [place] [address] Surgeon Orthopedic Surgery 09/27/23 Tiburcio Sarabia MD [address] [facility] [address] [place] [address] Dermatology 09/27/23 Michelle Shi, OD [address] [address] Optometry 06/09/24 Tomas Dunham MD [address] [place] [address] Consulting Physician Vascular Surgery 09/08/24 documented as of this encounter
--- OUTSIDE RECORDS SUMMARY | 2024-10-29 13:23 | XMS_ITS | Encounter Summary ---
Author Organization [employer] [facility] Address [address] [place] [address] Phone Care Team Providers Care System Auditor Name Role Phone Cari Lawrence MD Primary Care Provider + [phone] Patrice Louis MD Unavailable +[phone] Miguel Ángel Rodas MD Unavailable +[phone] Yahir Clemons MD Unavailable +[phone] Brie Lerma Unavailable Unavailable David Jeffrey MD Unavailable +[phone] Diann Wayne RN Unavailable +[phone] Giovanny HERRERA MD, John Matthew Unavailable + [phone] Mukesh Aguirre MD Unavailable +[phone] Kevin Mcdermott LCSW Unavailable UnavailIván Reeder MD Unavailable +[phone] Harrison Smith MD Unavailable [phone] Celi Graves MD Unavailable Juan Mars MD Unavailable + [phone] Mauricio Degroot MD Unavailable +[phone] Curtis Ca MD Unavailable +[phone] Chava Jones MD Unavailable [phone] Wili Hernandez MD Unavailable [phone] Jory Diegoe AIX ARCHITECT Unavailable Raiza ClarkGenie SITE IDENTIFICATION SPECIALIST Unavailable [phone] Mitch Juan MD Unavailable [phone] Tiburcio Sarabia MD Unavailable Michelle Shi OD Unavailable Tomas Dunham MD Unavailable Encounter Details Date Type Department Care Team (Late st Contact Info) Description 12/06/2016 Orders Only [facility] [address] [place] [address] Cari Lawrence MD [address] [place], [place] [address] Social History Tobacco Use Types Packs/Day Years Used Date Smoking Tobacco: Never Assessed Sex and Gender Information Value Date Recorded Sex Assigned at Not on file Legal Sex Male 3:43 PM 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 Gender Identity Male 03/09/2022 10:24 AM TRAIN 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 Sexual Orientation Not on file documented as of this encounter Plan of Treatment Not on file documented as of this encounter Procedures Procedure Name Priority Date/Time Associated Diagnosis Comments SCAN - LABS 12/06/2016 1:53 PM CDT documented in this encounter Results * SCAN - LABS (12/06/2016 1:53 PM CDT) Cari Lawrence MD Final Resu lt documented in this encounter Visit Diagnoses Not on filedocumented in this encounter Additional Health Concerns Infection Onset Date Last Indicated Resolved Time COVID19 05/26/2019 05/26/2019 07/23/2019 3:06 AM CDT COVID: Suspected 01/18/2021 01/18/2021 01/18/2021 2:15 PM TRAIN 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 documented as of this encounter Care Teams System Auditor Relationship Specialty Start Date End Date Cari Lawrence MD PCP - General 05/26/16 [place] [address] [address] Consulting Physician Urology 12/18/16 03/02/20 Miguel Ángel Rodas MD [address] [facility] [address] Margi [place] [address] Consulting Physician Internal Medicine 12/18/16 Yahir Clemons MD [address] [facility] [place] [address] Consulting Physician Ophthalmology 12/18/16 07/15/18 Brie Lerma [address] [facility] [address] Margi [address] [place] [address] Consulting Physician Ophthalmology 06/20/17 07/15/18 David Jeffrey MD [address] [place] [address] DR [address]REEM[address] Margi [place] [address] Referring Physician Ophthalmology 07/16/18 05/27/23 Diann Wayne, MANUEL [address] [place] [address] DR [address] Margi [place] [address] Developer Evangelist 08/13/18 10/01/18 Darryl Baltazar III, MD [address] [place] [address] [place] [address] Surgeon Plastic Surgery 04/23/19 05/27/23 Mukesh Aguirre MD [address] [address] Consulting Physician Urology 06/17/19 05/24/23 Sharron Kevin, SITE IDENTIFICATION SPECIALIST [address] [place] [address] Strategic Partnership Representative 03/12/20 01/31/21 Iván Jim MD [address] [place] [address] Referring Physician Orthopedic Surgery 09/06/22 Harrison Smith MD [address] [place] [address] Consulting Physician Urology 10/25/22 05/27/23 Celi Graves MD [address] [place] [address] [address] [place] [address] Consulting Physician Gastroenterology 12/25/22 Juan Mars MD [address] [place] [address] [place] [address] Consulting Physician Urology 01/30/23 Mauricio Degroot MD [address] [place] [address] [place] [address] Consulting Physician Nephrology 05/28/23 Curtis Ca MD [address] [place] [address] [address] [place] [address] Consulting Physician Neurology 05/28/23 Chava Jones MD [address] [place] [address] [address] [place] [address] Consulting Physician Plastic Surgery 05/28/23 Wili Hernandez MD [address] [place] [address] [place] [address] Consulting Physician Cardiovascular Disease 05/27/22 Jory Diego NP [address] [place] [address] [address] [place] [address] Nurse Practitioner Family Medicine 07/30/23 Raiza Clark, [facility] [address] [facility] [place] [address] Strategic Partnership Representative 08/10/23 01/14/24 Mitch Juan MD [address] [place] [address] [address] Gregorio [facility] [address] [place] [address] Surgeon Orthopedic Surgery 09/27/23 Tiburcio Sarabia MD [address] [place] [address] [address] Gregorio [facility] [address] [place] [address] Dermatology 09/27/23 Michelle Shi, AUREA [address] [place] [address] [place] [address] Optometry 06/09/24 Tomas Dunham MD [address] [place] [address] Consulting Physician Vascular Surgery 09/08/24 documented as of this encounter
--- OUTSIDE RECORDS SUMMARY | 2024-10-29 13:23 | XMS_ITS | Encounter Summary ---
Author Organization [place] [facility] Address [address] [place] [address] Phone Care Team Providers Care Deckhand Fishing Vessel Name Role Phone Cari Lawrence MD Primary Care Provider + [phone] Miguel Ángel Rodas MD Unavailable +[phone] David Jeffrey MD Unavailable +[phone] Giovanny HERRERA MD, Darryl Grullon Unavailable + [phone] Mukesh Aguirre MD Unavailable +[phone] Kevin Mcdermott LCSW Unavailable [facility] Iván Jim MD Unavailable +[phone] Harrison Smith MD Unavailable [phone] Celi Graves MD Unavailable Juan Mars MD Unavailable + [phone] Mauricio Degroot MD Unavailable +[phone] Curtis Ca MD Unavailable +[phone] Chava Jones MD Unavailable + [phone] Wili Hernandez MD Unavailable [phone] Jory Diego NP Unavailable [phone] Raiza ClarkGenie SENIOR ENGINEERING TECH Unavailable Mitch Juan MD Unavailable [phone] Tiburcio Sarabia MD Unavailable ShiMichelle lagosGenie OD Unavailable Tomas Dunham MD Unavailable Encounter Details Date Type Department Care Team (Late st Contact Info) Description 08/19/2020 Orders Only [facility] [address] [place] [id number] Cari Lawrence MD [address] [place] [address] Social History Tobacco Use Types Packs/Day Years Used Date Smoking Tobacco: Former Smokeless Tobacco: Never Alcohol Use Standard Drinks/Week Comments Yes 21 (1 standard drink = 0.6 oz pu re alcohol) Social Connection and Isolation Panel Answer Date Recorded In a typical week, how many times do you talk on the phone with family, friends, or neighbors? More than three times a week 08/06/2020 How often do you get togethe r with friends or relatives? More than three times a week 08/06/2020 How often do you attend chur ch or catholic services? Never 08/06/2020 Do you belong to any clubs o r organizations such as jew groups, unions, fraternal or athletic groups, or school groups? No 08/06/2020 How often do you attend meet ings of the clubs or organizations you belong to? Never 08/06/2020 Are you , , di vorced, , never , or living with a partner? 08/06/2020 Overall Financial Resource Strain (CARDIA) Answe r [...] things needed for daily living? No 03/12/2020 Housing Stability Vital Sign Answer Black e Recorded In the last 12 months, was t here a time when you were not able to pay the mortgage or rent on time? No 05/07/2020 In the last 12 months, how many places have you lived? 1 05/07/2020 In the last 12 months, was t here a time when you did not have a steady place to sleep or slept in a senior living (including now)? No 05/07/2020 Sex and Gender Information Value Date Recorded Sex Assigned at Not on file Legal Sex Male 3:43 PM SCHOOL BUS ATTENDANT Gender Identity Male 03/09/2022 10:24 AM SCHOOL BUS ATTENDANT Sexual Orientation Not on file Occupation Industry Job Start Date Job End Date retired Not on file Not on file Not on file documented as of this encounter Plan of Treatment Not on file documented as of this encounter Procedures Procedure Name Priority Date/Time Associated Diagnosis Comments CARDIOLOGY DOCUMENT SCAN 08/19/2020 documented in this encounter Results * SCAN - CARDIOLOGY (08/19/2020) Anatomical Region Laterality Modality Other us Cari Lawrence MD CV CARDIAC SERVICES PROCED URES Edited Result - Final documented in this encounter Visit Diagnoses Not on filedocumented in this encounter Additional Health Concerns Infection Onset Date Last Indicated Resolved Time COVID: Suspected 01/18/2021 01/18/2021 01/18/2021 2:15 PM SCHOOL BUS ATTENDANT documented as of this encounter Care Teams Deckhand Fishing Vessel Relationship Specialty Start Date End Date Cari Lawrence MD PCP - General 05/26/16 Miguel Ángel Rodas MD [address] [facility] [place] [address] Consulting Physician Internal Medicine 12/18/16 David Jeffrey MD [address] [place] [address] [place] [address] Referring Physician Ophthalmology 07/16/18 05/27/23 Darryl Baltazar III, MD [address] [place] [address] [place] [address] Surgeon Plastic Surgery 04/23/19 05/27/23 Mukesh Aguirre MD [address] [place] [address] Consulting Physician Urology 06/17/19 05/24/23 Kevin Mcdermott LCSW [address] [address] Information Security Engineer 03/12/20 01/31/21 Iván Jim MD [address] [place] [id number] Referring Physician Orthopedic Surgery 09/06/22 Harrison Smith MD [address] [place] [address] Consulting Physician Urology 10/25/22 05/27/23 Celi Graves MD [address] [place] [address] [place] [address] Consulting Physician Gastroenterology 12/25/22 Juan Mars MD [address] [place] [address] [address] [place] [address] Consulting Physician Urology 01/30/23 Mauricio Degroot MD [address] [place] [address] [address] [place] [address] Consulting Physician Nephrology 05/28/23 Curtis Ca MD [address] [place] [address] [address] [place] [address] Consulting Physician Neurology 05/28/23 Chava Jones MD [address] [place] [address] [address] [place] [address] Consulting Physician Plastic Surgery 05/28/23 Wili Hernandez MD [address] [place] [address] [address] [place] [address] Consulting Physician Cardiovascular Disease 05/27/22 Jory Diego, RY [address] [place] [address] [address] [place] [address] Nurse Practitioner Family Medicine 07/30/23 Raiza Clark, [address] [place] [id number] Information Security Engineer 08/10/23 01/14/24 Mitch Juan MD [address] [place] [address] [address] Gregorio [facility] [address] [place] [address] Surgeon Orthopedic Surgery 09/27/23 Tiburcio Sarabia MD [address] [place] [address] [address] Gregorio [facility] [address] [place] [address] Dermatology 09/27/23 Michelle Shi OD [address] [place] [address] Optometry 06/09/24 Tomas Dunham MD [address] [place] [address] Consulting Physician Vascular Surgery 09/08/24 documented as of this encounter
--- OUTSIDE RECORDS SUMMARY | 2024-10-29 13:23 | XMS_ITS | Encounter Summary ---
Author Organization [place] [facility] Address [address] [place] [address] Phone Care Team Providers Care Combine Mechanic Name Role Phone Cari Lawrence MD Primary Care Provider + [phone] Patrice Louis MD Unavailable +[phone] Miguel Ángel Rodas MD Unavailable +[phone] Yahir Clemons MD Unavailable +[phone] Brie Lerma Unavailable Unavailable David Jeffrey MD Unavailable [phone] Diann Wayne RN Unavailable +[phone] Giovanny HERRERA MD, John Matthew Unavailable + [phone] Mukesh Aguirre MD Unavailable +[phone] Kevin Mcdermott LCSW Unavailable UnavailIván Reeder MD Unavailable +[phone] Harrison Smith MD Unavailable [phone] Celi Graves MD Unavailable Juan Mars MD Unavailable + [phone] Mauricio Degroot MD Unavailable +[phone] Curtis Ca MD Unavailable +[phone] Chava Jones MD Unavailable [phone] Wili Hernandez MD Unavailable [phone] Jory Diegoe COLLAR PACKER Unavailable Raiza ClarkGenie SWISS TYPE SCREW MACHINE OPERATOR Unavailable Mitch Juan MD Unavailable Tiburcio Sarabia MD Unavailable Michelle Shi OD Unavailable Tomas Dunham MD Unavailable Encounter Details Date Type Department Care Team (Late st Contact Info) Description 12/05/2016 Orders Only [facility] [address] [place] [address] Cari Lawrence MD [address] [place] [address] Social History Tobacco Use Types Packs/Day Years Used Date Smoking Tobacco: Never Assessed Sex and Gender Information Value Date Recorded Sex Assigned at Not on file Legal Sex Male 3:43 PM OCCUPATIONAL THERAPY ASSIST Gender Identity Male 03/09/2022 10:24 AM OCCUPATIONAL THERAPY ASSIST Sexual Orientation Not on file documented as of this encounter Plan of Treatment Not on file documented as of this encounter Procedures Procedure Name Priority Date/Time Associated Diagnosis Comments SCAN - LABS 12/05/2016 12:29 PM CDT documented in this encounter Results * SCAN - LABS (12/05/2016 12:29 PM CDT) Cari Lawrence MD Final Resu lt documented in this encounter Visit Diagnoses Not on filedocumented in this encounter Additional Health Concerns Infection Onset Date Last Indicated Resolved Time COVID19 05/26/2019 05/26/2019 07/23/2019 3:06 AM CDT COVID: Suspected 01/18/2021 01/18/2021 01/18/2021 2:15 PM OCCUPATIONAL THERAPY ASSIST documented as of this encounter Care Teams Combine Mechanic Relationship Specialty Start Date End Date Cari Lawrence MD PCP - General 05/26/16 [place] [address] [address] Consulting Physician Urology 12/18/16 03/02/20 Miguel Ángel Rodas MD [address] [facility] [address] [place] [address] Consulting Physician Internal Medicine 12/18/16 Yahir Clemons MD [address] [facility] [address] Consulting Physician Ophthalmology 12/18/16 07/15/18 Brie Lerma [address] [facility] [address] [place] [address] Consulting Physician Ophthalmology 06/20/17 07/15/18 David Jeffrey MD [address] [place] [address] [address] [place] [address] Referring Physician Ophthalmology 07/16/18 05/27/23 Diann Wayne, MANUEL [address] [place] [address] [address] [place] [address] Pet Care Assistant 08/13/18 10/01/18 Darryl Baltazar III, MD [address] [place] [address] [place] [address] Surgeon Plastic Surgery 04/23/19 05/27/23 Mukesh Aguirre MD [address] [address] Consulting Physician Urology 06/17/19 05/24/23 Sharron Kevin, SWISS TYPE SCREW MACHINE OPERATOR [address] [place] [address] Risk Tech 03/12/20 01/31/21 Iván Jim MD [address] [place] [address] Referring Physician Orthopedic Surgery 09/06/22 Harrison Smith MD [address] [place] [address] Consulting Physician Urology 10/25/22 05/27/23 Celi Graves MD [address] [place] [address] [address] [place] [address] Consulting Physician Gastroenterology 12/25/22 Juan Mars MD [address] [place] [address] [place] [address] Consulting Physician Urology 01/30/23 Mauricio Degroot MD [address] [place] [address] [place] [address] Consulting Physician Nephrology 05/28/23 Curtis Ca MD [address] [place] [address] [address] [place] [address] Consulting Physician Neurology 05/28/23 Chava Jones MD [address] [place] [address] [address] [place] [address] Consulting Physician Plastic Surgery 05/28/23 Wili Hernandez MD [address] [place] [address] [place] [address] Consulting Physician Cardiovascular Disease 05/27/22 Jory Diego NP [address] [place] [address] [address] [place] [address] Nurse Practitioner Family Medicine 07/30/23 Raiza Clark, [facility] [address] [facility] [place] [address] Risk Tech 08/10/23 01/14/24 Mitch Juan MD [address] [place] [address] [facility] [address] [place] [address] Surgeon Orthopedic Surgery 09/27/23 Tiburcio Sarabia MD [address] [place] [address] [facility] [facility] [address] [place] [address] Dermatology 09/27/23 Michelle Shi, AUREA [address] [place] [address] [place] [address] Optometry 06/09/24 Tomas Dunham MD [address] [place] [address] Consulting Physician Vascular Surgery 09/08/24 documented as of this encounter
--- OUTSIDE RECORDS SUMMARY | 2024-10-29 13:23 | XMS_ITS | Encounter Summary ---
Author Organization [facility] Address [address] [place] [address] Phone Care Team Providers Care Senior Payroll Manager Name Role Phone Cari Lawrence MD Primary Care Provider [phone] Iván Jim MD Unavailable Celi Graves MD Unavailable Juan Mars MD Unavailable [phone] Mauricio Degroot MD Unavailable [phone] Curtis Ca MD Unavailable [phone] Chava Jones MD Unavailable [phone] Wili Hernandez MD Unavailable [phone] Jory Diego NP Unavailable [phone] Raiza ClarkW Unavailable Mitch Juan MD Unavailable Tiburcio Sarabia MD Unavailable [phone] Michelle Shi OD Unavailable Tomas Dunham MD Unavailable Reason for Referral * Diagnostic Imaging (Routine) - Closed Specialty Diagnoses / Procedures Referred By Contnoelle t Referred To Contact Diagnoses Dermatochalasis of both upper eyelids Procedures Ptosis Visual Field, Limited - OU - Both Eyes Chava Jones MD [id number] [place] [address] Phone: tel: fax: External Order Referral ID Status Reason Start Date Expiration Date Visits Re quested Visits Authorized [id number] Closed 08/15/2023 09/13/2024 1 1 Encounter Details Date Type Department Care Team (Late st Contact Info) Description 08/15/2023 Orders Only [facility] [address] [place] [address] [place] [id number] Fifi Garrison RN Dermatochalasis of both upper eyelids (Primary Dx) Social History Tobacco Use Types Packs/Day Years Used Date Smoking Tobacco: Former Smokeless Tobacco: Never Alcohol Use Standard Drinks/Week Comments Yes 21 (1 standard drink = 0.6 oz pu re alcohol) [facility] Utilities Answer Date Recorded In the past 12 months has [employer], gas, oil, or water Lydia threatened to shut off services in your [...] often do you attend chur ch or advent services? Never 08/10/2023 Do you belong to any clubs o r organizations such as presybeterian groups, unions, fraternal or athletic groups, or [...] points, staff should administer the PHQ-9) 2 05/28/2023 Hunger Vital Sign Answer Date Recorded Within [...] place to sleep or slept in a residential (including now)? No 12/19/2022 PHQ-9 Answer Date [...] any time in the past 12 [address] [place] [place], were you homeless or living in a residential (including now)? No 08/10/2023 Personal Safety Answer [...] on file Legal Sex Male 3:43 PM MEDICAL TECHNOLOGIST Gender Identity Male 03/09/2022 10:24 AM MEDICAL TECHNOLOGIST Sexual Orientation Not on file Occupation Industry Job Start Date Job End Date retired Not on file Not on file Not on file documented as of this encounter Plan of Treatment Scheduled Orders Name Type Priority Associated Diagnoses Orde r Schedule Ptosis Visual Field, Limited - OU - Both Eyes Ophthalmology Routine Dermatochalasis of both upper eyelids 1 Occurrences starting 08/15/2023 until 08/14/2024 documented as of this encounter Visit Diagnoses Diagnosis Dermatochalasis of both upper eyelids- Primary documented in this encounter Care Teams Senior Payroll Manager Relationship Specialty Start Date End Date Cari Lawrence MD PCP - General 05/26/16 Iván Jim MD [address] [place] [address] Referring Physician Orthopedic Surgery 09/06/22 Celi Graves MD [address] [place] [address] [place] [address] Consulting Physician Gastroenterology 12/25/22 Juan Mars MD [address] [place] [address] [place] [address] Consulting Physician Urology 01/30/23 Mauricio Degroot MD [address] [place] [address] [place] [address] Consulting Physician Nephrology 05/28/23 Curtis Ca MD [address] [place] [address] [address] [place] [address] Consulting Physician Neurology 05/28/23 Chava Jones MD [address] [facility] [address] [place] [address] Consulting Physician Plastic Surgery 05/28/23 Wili Hernandez MD [address] [facility] [address] [place] [address] Consulting Physician Cardiovascular Disease 05/27/22 Jory Diego, RY [address] [facility] [address] [place] [address] Nurse Practitioner Family Medicine 07/30/23 Raiza Clark, [address] [place] [address] Automotive Parts Person 08/10/23 01/14/24 Mitch Juan MD [address] [place] [address] DR [address]UST[address] Gregorio [address] [address] Surgeon Orthopedic Surgery 09/27/23 Tiburcio Sarabia MD [address] [place] [address] [address] F[address] [place] [address] [address] Dermatology 09/27/23 Michelle Shi OD [address] [place] [address] [place] [address] Optometry 06/09/24 Tomas Dunham MD [address] [place] [address] Consulting Physician Vascular Surgery 09/08/24 documented as of this encounter
== END 2024-10-29 11:43 | disposition home or self-care (01) ==
PROVIDERS: PCP Internal Medicine Geriatric Medicine; Visit Provider Orthopaedic Surgery
DX: M12.811 Other specific arthropathies, not elsewhere classified, right shoulder (principal); M75.21 Bicipital tendinitis, right shoulder
CPT/HCPCS: 73030